=== PATIENT | male | born 2000 | race Hispanic/Latino ===

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

== ENCOUNTER 2018-01-04 22:11 | Emergency (ER) | payer OTHER ==
[~2018-01-04] VITALS: Ht 182.9 cm; Wt 68.0 kg
[~2018-01-04 22:11] MED LIST changes: +OLANZAPINE15 M1 PO
--- NOTE | 2018-01-04 23:21 | ED PSYCHIATRIC COMPLAINT ---
See Addendum History of Present Illness General Chief Complaint: Psychiatric Related Complaint Stated Complaint: ?MANIC EPISODE PER MOM Source: patient, family, old records Exam Limitations: no limitations Vital Signs & Intake/Output Vital Signs & Intake/Output Vital Signs Date Time Temp Pulse Resp B/P B/P Pulse O2 O2 Flow FiO2 Mean Ox Delivery Rate 01/05 1450 98.1 74 20 125/78 99 Room Air Room Air 01/05 1128 98.0 70 18 123/79 99 Room Air Room Air 01/05 0809 98.1 72 18 134/52 98 Room Air 01/05 0452 97.1 58 16 92/68 98 01/05 0118 98.8 97 20 128/68 99 01/04 2226 98.1 68 18 133/86 96 Room Air ED Intake and Output 01/05 0000 01/04 1200 Intake Total Output Total Balance Patient 150 lb Weight Weight Reported by Patient Measurement Method Allergies Coded Allergies: cashew nut (Severe, THROAT CLOSURE 01/05/17) Reconcile Medications Divalproex Sodium 500 MG TABLET.DR 1 TAB PO BID BEHAVIOR (Reported) Gabapentin 300 MG CAPSULE 1 CAP PO TID BEHAVIOR (Reported) Olanzapine 15 MG TABLET 15 MG PO AT BEDTIME Schizoaffective Triage Note: PT TO ER WITH MOTHER C/C "MANIC EPISODE" X 2 DAYS. STATES HAS BEEN UNABLE TO SLEEP, C/O RACING THOUGHTS. PER MOTHER PATIENT WAS ADMITTED TO [facility] 2 WEEKS AGO, PLAN WAS TO F/U OUTPATIENT, HOWEVER, D/T INSURANCE ISSUES HAS BEEN UNABLE. DENIES SI/HI, DENIES ETOH/DRUG USE Triage Nurses Notes Reviewed? yes Onset: Several days Duration: day(s):, constant, continues in ED, getting worse Timing: recent history Severity: moderate, severe Associated Symptoms: anxiety, impaired concentration, insomnia HPI: Several days prior to admission mother reports patient has had increasing anxiety difficulty concentrating difficulty sleeping. He denies fever chills nausea vomiting diarrhea abdominal pain chest pain shortness breath headache dysuria rash bleeding suicidal ideation homicidal ideation. (Kp MCGEE,Brian) Past History Travel History Traveled to [place] past 21 day No Medical History Any Pertinent Medical History? see below for history Neurological: NONE, SKULL FRACTURE A BABY EENT: NONE Cardiovascular: NONE Respiratory: NONE Gastrointestinal: NONE Hepatic: NONE Renal: NONE Musculoskeletal: NONE Psychiatric: psychosis, schizo affective disorder, substance abuse (Cannabus Use Disorder), Attention-deficit/hyperac tivity disorder Endocrine: NONE Blood Disorders: NONE Cancer(s): NONE WINCH RUNNER/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: N/A History of MRSA: No History of VRE: No History of CDIFF: No Surgical History Surgical History: non-contributory Psychosocial History Who do you live with Mother What is your primary language Czech Tobacco Use: Never used Family History Hx Contributory? No (Brian Goodrich MD) Review of Systems Review of Systems Constitutional: Reports: no symptoms. EENTM: Reports: no symptoms. Respiratory: Reports: no symptoms. Cardiovascular: Reports: no symptoms. GI: Reports: no symptoms. Genitourinary: Reports: no symptoms. Musculoskeletal: Reports: no symptoms. Skin: Reports: no symptoms. Neurological/Psychological: Reports: see HPI, anxiety, confusion. Hematologic/Endocrine: Reports: no symptoms. Immunologic/Allergic: Reports: no symptoms. All Other Systems: Reviewed and Negative (Brian Goodrich MD) Physical Exam Physical Exam General Appearance: well developed/nourished, alert, awake, anxious, moderate distress, thin Head: atraumatic, normal appearance Eyes: Bilateral: normal appearance, PERRL, EOMI. Ears, Nose, Throat: normal pharynx, normal ENT inspection, hearing grossly normal, moist mucus membranes Neck: normal inspection, supple, full range of motion, no midline tenderness Respiratory: normal breath sounds, chest non-tender, no respiratory distress, quiet respiration, lungs clear Cardiovascular: regular rate/rhythm, normal peripheral pulses, norml femoral pulses equa Gastrointestinal: normal bowel sounds, soft, non-tender, no organomegaly Extremities: normal range of motion, no ligament instability Neurological/Psychiatric: no motor/sensory deficits, awake, agitated, alert, anxious, 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 patient not suicidal (Brian Goodrich MD) Progress Differential Diagnosis: drug intoxication, drug overdose, drug withdrawal, electrolyte abnormality, hypoglycemia Plan of Care: Orders Procedure Date/time Status Regular Diet 01/05 B Active URINE DRUG SCREEN FOR ER ONLY 01/05 0945 Complete Patient Safety Monitor 01/05 0310 Active Patient Safety Monitor 01/04 2313 Active ED CRISIS PSYCH CONSULT 01/05 2312 Active ETHANOL 01/05 2240 Complete COMPREHENSIVE METABOLIC PANEL 01/05 2240 Complete CBC WITHOUT DIFFERENTIAL 01/05 2240 Complete Current Medications Sig/Federico Start time Last Medication Dose Stop Time Status Admin Olanzapine 15 MG AT BEDTIME 01/05 2100 AC (Zyprexa) Laboratory Tests 01/05/18 0946: Urine Opiates Screen < 100, Methadone Screen < 40, Barbiturate Screen < 60, Ur Phencyclidine Scrn < 6.00, Amphetamines Screen < 100, U Benzodiazepines Scrn < 85, Urine Cocaine Screen < 50, Urine Cannabis Screen 78.30 H 01/04/182315: Anion Gap 14, Estimated GFR > 60, BUN/Creatinine Ratio 13.3, Glucose 100 H, Calcium 9.7, Total Bilirubin 0.5, AST 22, ALT 27, Alkaline Phosphatase 51, Total Protein 7.8, Albumin 4.4, Globulin 3.4, Albumin/Globulin Ratio 1.3, CBC w Diff NO MAN DIFF REQ, RBC 5.09, MCV 87.8, MCH 29.8, MCHC 33.9, RDW 13.3, MPV 8.5, Gran % 71.9, Lymphocytes % 20.2 L, Monocytes % 6.3, Eosinophils % 1.3, Basophils % 0.3, Absolute Granulocytes 7.1 H, Absolute Lymphocytes 2.0, Absolute Monocytes 0.6, Absolute Eosinophils 0.1, Absolute Basophils 0, Serum Alcohol < 10.0 01/04/182239: Methadone Screen Cancelled, Barbiturate Screen Cancelled, Ur Phencyclidine Scrn Cancelled, Amphetamines Screen Cancelled, U Benzodiazepines Scrn Cancelled, Urine Cocaine Screen Cancelled, Urine Cannabis Screen Cancelled Hand-Off Endorsed To: Nigel Sosa MD Endorsed Time: 0700 Pending: consult, labs (utox) (Brian Goodrich MD) Comments: Patient has been seen and evaluated by group contract analyst. Patient has IOP appointment Tuesday at 2 PM. Patient is stable for discharge at this time. (Nigel Sosa MD) Departure Departure Condition: Stable Clinical Impression Primary Impression: Schizoaffective disorder, bipolar type Departure Forms: Customer Survey General Discharge Information (Brian Goodrich MD) Departure Disposition: HOME OR SELF CARE Referrals: Patient Has No Primary Care Dr (PCP/Family) Additional Instructions: Please follow up as per recommendations of the group contract analyst. Call 211 or return immediately to the emergency department for any concerns of harming yourself, anyone else or for any other concerns. Follow-up with the IOP appointment on Tuesday at 2 PM. (Sheila MCGEE,Nigel Santiago)
[2018-01-04 23:23] LABS: ABSOLUTE BASOPHIL COUNT 0 /CUMM (0.0-0.2); ABSOLUTE EOSINOPHIL COUNT 0.1 /CUMM (0.0-0.7); ABSOLUTE GRANULOCYTE CT 7.1 /CUMM (1.4-6.5); ABSOLUTE MONOCYTE COUNT 0.6 /CUMM (0.10-0.60); BASOPHIL % 0.3 % (0.0-2.0); EOSINOPHIL % 1.3 % (0-5); GRANULOCYTE % 71.9 % (42.2-75.2); HEMATOCRIT 44.7 % (42-52); MEAN CORPUSCULAR HGB 29.8 PG (27.0-31.0); MEAN CORPUSCULAR HGB CONC 33.9 G/DL (33.0-37.0); MEAN CORPUSCULAR VOLUME 87.8 FL (80.0-94.0); MEAN PLATELET VOLUME 8.5 FL (7.4-10.4); PLATELET COUNT 204 /CUMM (130-400); RBC DISTRIBUTION WIDTH 13.3 % (11.5-14.5); RED BLOOD CELL CT 5.09 /CUMM (4.70-6.10); WHITE BLOOD CELL COUNT 9.9 /CUMM (4.8-10.8)
[2018-01-04] MEDS ORDERED: GABAPENTIN300 M2 PO (23:43)
[2018-01-04] MEDS ORDERED: DIVALPROEX SOD500 M2 PO (23:43)
--- NOTE | 2018-01-05 16:23 | ED PSYCH CRISIS CONSULTATION ---
Crisis Consult Basic Assessment Date of Consult: 01/05/18 Responsible Person/Accompanied By: self Insurance Authorization: Insurance #1: Insurance name: [employer] Phone number: Policy number: [id number] Group number: Authorization number: ED Provider: Patient's ED Provider: Brian Goodrich MD Primary Care Physician: Patient's PCP: Patient Has No Primary Care Dr PCP's Phone Number: Current Psychiatrist: [facility] Chief Complaint: Psychiatric Related Complaint Patient's Quote: "couldn't sleep" Present Illness: Pt is a 17 year old male arriving to ER due to "can't sleep, I keep having too many thoughts". Pt denies si/hi/ah/vh. He begins to bring up a past situation/ delusion about possibly getting an ex girlfriend , and whether or not he has a child. Mom states this is not true, but pt does think about this often. Pt states he is still working at [employer] and has a girlfriend, he isn't taking his medications as prescribed, "I don't like Zyprexa or Gabapentin, I just like marijuana". Pt states "I just want to go home smoke a blunt and play my xbox". We explored mental health and how racing thoughts and not sleeping can impact functioning. I encouraged him to attend [facility], to continue to manage manic, psychotic symtpoms. Pt does not want to come in to the hospital, he states I just need to sleep, and lsiten to music. Pt had ear plugs in, and was lying quietly in bed, although denied hearing voices. I spoke with his Mom, who confirmed he did not Father a child, but she did report he has not slept, she can't confirm if he has taken his medications 'I work 2 jobs, I tell him to take them, I can't be sure what he does". I expressed how a visiting nurse could be very helpful, I encouraged her to continue to think about it. Patient's Address: [address] [place] [address] Other Phone Number: Who Do You Live With? Mother Family/Informants Interviewed: Spoke to Mom, enouraged her to rethink the visting nurse, and she is anxious because she doesnt always know what he doing during the day, and he hasn't slept. Allergies - Coded Allergies: cashew nut (Severe, THROAT CLOSURE 01/05/17) Current Medications - Scheduled Medications Divalproex Sodium 500 MG TABLET.DR 1 TAB PO BID BEHAVIOR #60 (Reported) Entered as Reported by Keya Moffett on 01/04/18 2343 Gabapentin 300 MG CAPSULE 1 CAP PO TID BEHAVIOR #180 (Reported) Entered as Reported by Keya Moffett on 01/04/18 2343 Olanzapine 15 MG TABLET 15 MG PO AT BEDTIME Schizoaffective #30 TAB Prescribed by Antwan Aleman MD on 12/15/17 Last Taken: At an unknown date and time Laboratory Results: Laboratory Tests 01/05/18 0946: Urine Opiates Screen < 100, Methadone Screen < 40, Barbiturate Screen < 60, Ur Phencyclidine Scrn < 6.00, Amphetamines Screen < 100, U Benzodiazepines Scrn < 85, Urine Cocaine Screen < 50, Urine Cannabis Screen 78.30 H 01/04/18 2316: Anion Gap 14, Estimated GFR > 60, BUN/Creatinine Ratio 13.3, Glucose 100 H, Calcium 9.7, Total Bilirubin 0.5, AST 22, ALT 27, Alkaline Phosphatase 51, Total Protein 7.8, Albumin 4.4, Globulin 3.4, Albumin/Globulin Ratio 1.3, CBC w Diff NO MAN DIFF REQ, RBC 5.09, MCV 87.8, MCH 29.8, MCHC 33.9, RDW 13.3, MPV 8.5, Gran % 71.9, Lymphocytes % 20.2 L, Monocytes % 6.3, Eosinophils % 1.3, Basophils % 0.3, Absolute Granulocytes 7.1 H, Absolute Lymphocytes 2.0, Absolute Monocytes 0.6, Absolute Eosinophils 0.1, Absolute Basophils 0, Serum Alcohol < 10.0 01/04/18 2240: Methadone Screen Cancelled, Barbiturate Screen Cancelled, Ur Phencyclidine Scrn Cancelled, Amphetamines Screen Cancelled, U Benzodiazepines Scrn Cancelled, Urine Cocaine Screen Cancelled, Urine Cannabis Screen Cancelled Past History Past Medical History Neurological: NONE, SKULL FRACTURE A BABY EENT: NONE Cardiovascular: NONE Respiratory: NONE Gastrointestinal: NONE Hepatic: NONE Renal: NONE Musculoskeletal: NONE Psychiatric: psychosis, schizo affective disorder, substance abuse (Cannabus Use Disorder), Attention-deficit/hyperac tivity disorder Endocrine: NONE Blood Disorders: NONE Cancer(s): NONE 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 Past Surgical History Surgical History: non-contributory Psychosocial History Strengths/Capabilities: Supportive family, reaches out for help Physical Limitations (Interventions): None reported Psychiatric Treatment History Psych Treatment Psychiatric Treatment Yes Inpatient Treatment Yes Outpatient Treatment Yes Location of Treatment [facility]/ IOP Reason for Treatment psychosis Dates of Treatment 2 weeks ago/ referral made Response to Treatment non compliant Diagnosis by History: Attention-deficit/hyperactivity disorder Depression Psychosis Cannabis use Substance Use/Abuse History Drug Use/Abuse Substances Used/Abused Yes Substance Used/Abused Marijuana First Use teenager Last Used yesterday How much used/taken varies How often varies For how long regularly Route of use smokes Substance Abuse Treatment Substance Abuse Treatment Past Substance Abuse [place] No Current Mental Status Mental Status Orientation: Person, Place, Situation Affect: Anxious, Manic, Sad Speech: WNL Neuro-vegetative: Concentration Poor, Hyperactivity, Sleep Disturbance Appearance Appearance- Dress/Hygiene: WNL Behaviors Thought Process: Flight of Ideas Thought Content: Delusions, Grandiose Memory: WNL Insight: Fair SI/HI Risk Assessment Past Suicidal Ideation/Attempts Yes Current Suicidal Ideation/Att No Past Homicidal Ideation/Att: No Current Homicidal Ideation/Attempts No Degree of Intent: None Gravely Disabled: Poor Impulse Control, Poor Judgment Risk Factors: age (under 24/over 65), substance abuse, poor impulse control, male, limited support Lethality Ratin (mild) PTSD Checklist PTSD Done? patient declined ED Management Sitter: Yes Restraints: No DSM5/PS Stressors/Medical Prob Diagnosis' (DSM 5, Stressors, Medical): Bi-polar with psychotic features F31.2 interpersonal Current GAF: 32 Departure Disposition Psych Medical Clearance Date: 01/05/18 Medically Cleared at: 1630 Time Started: 1630 Time Ended: 1730 Psychiatrist Consulted: Bhaskar Rodríguez MD Date Disposition Established: 01/05/18 Time Disposition Established: 1629 Plan for Disposition - Modality: IOP Facility: [facility] Follow-up Appt Date: 01/09/18 Follow-Up Appt Time: 1400 Contact: [facility] Rationale for Disposition: Consulted with Dr. Rodríguez, pt denies si/hi/ah/vh, he expressed racing thoughts and some delusions about the past. Current cannabis use, he will attend IOP, and revisit plan to have a visiting nurse. Informed Mom of plan and of his appointment. Referrals Patient Has No Primary Care Dr (PCP/Family)
[2018-01-05 19:47] VITALS: BP 124/72
[2018-01-09] MEDS ORDERED: ADDERALL 20 MG20 MG PO (10:31)
== END 2018-01-05 20:48 ==
LOC: ERH 22:11
PROVIDERS: Emergency Medicine
DX: F25.9 Schizoaffective disorder, unspecified (principal); F31.9 Bipolar disorder, unspecified
CPT/HCPCS: 80307; G0463; G0480

== ENCOUNTER 2018-01-28 02:52 | Emergency (ER) | payer OTHER ==
[~2018-01-28] VITALS: Ht 182.9 cm; Wt 68.0 kg
[~2018-01-28 02:52] MED LIST changes: +ADDERALL 20 MG20 MG PO; +DIVALPROEX SOD500 M2 PO
--- NOTE | 2018-01-28 03:26 | ED PSYCHIATRIC COMPLAINT ---
History of Present Illness General Chief Complaint: General Adult Stated Complaint: "HAVING A MANIC EPISODE" PER MOM Source: patient, family Exam Limitations: no limitations Vital Signs & Intake/Output Vital Signs & Intake/Output Vital Signs Date Time Temp Pulse Resp B/P B/P Pulse O2 O2 Flow FiO2 Mean Ox Delivery Rate 01/285 Room Air 01/28 2144 52 18 106/55 98 Room Air 01/28 1811 98.2 63 18 115/58 97 Room Air 01/28 1550 99 19 124/60 98 Room Air 01/28 1352 97 18 105/57 97 Room Air 01/28 1224 Room Air 01/28 1144 98.7 64 18 100/52 98 Room Air 01/28 1019 97.7 60 18 100/53 99 Room Air 01/28 0820 97.4 70 18 118/74 98 Room Air 01/28 0306 96.8 62 20 124/66 98 Room Air ED Intake and Output 01/29 0000 01/28 1200 Intake Total Output Total Balance Patient 150 lb Weight Weight Reported by Patient Measurement Method Reconcile Medications Dextroamphetamine/Amphetamine (Adderall 20 MG Tablet) 20 MG TABLET 1 TAB PO DAILY MENTAL HEALTH (Reported) Olanzapine 15 MG TABLET 15 MG PO AT BEDTIME Schizoaffective Triage Note: PT HERE FROM HOME WITH MOM. PER MO PT IS HAVING A MANIC EPISODE. MOM STATES PT HASNT TAKEN HIS MEDS IN 2 DAYS. PT DENIES SI/HI. REPORTS PAIN IN CHEST. Triage Nurses Notes Reviewed? yes HPI: 17 yo gentleman h/o bipolar disorder last flare approximately 1 year ago, with prior admission, presents with increasing energy and odd behavior. Per mom, "He just never sleeps and he sings in the middle of the night at 4am very loudly." Mom notes that sometimes he is very loud and aggressive at home. He has not taken his meds in several years. He smokes marijuana but denies other drug abuse or alcohol. He denies SI/HI/ hallucinations. (Milagros MCGEE,Bhaskar Napier) Allergies Coded Allergies: cashew nut (Severe, THROAT CLOSURE 01/05/17) Fish Containing Products (Intermediate, SWELLING 01/08/18) shellfish derived (THROAT CLOSES 01/28/18) (Kp MCGEE,Brian) Past History Travel History Traveled to [place] past 21 day No Medical History Any Pertinent Medical History? 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 No (Milagros MCGEE,Bhaskar Napier) Review of Systems Review of Systems Constitutional: Reports: no symptoms. EENTM: Reports: no symptoms. Respiratory: Reports: no symptoms. Cardiovascular: Reports: no symptoms. GI: Reports: no symptoms. Genitourinary: Reports: no symptoms. Musculoskeletal: Reports: no symptoms. Skin: Reports: no symptoms. Neurological/Psychological: Reports: no symptoms. Hematologic/Endocrine: Reports: no symptoms. Immunologic/Allergic: Reports: no symptoms. All Other Systems: Reviewed and Negative (Milagros MCGEE,Bhaskar Napier) Physical Exam Physical Exam General Appearance: well developed/nourished, mild distress Head: atraumatic Eyes: Bilateral: normal appearance. Ears, Nose, Throat: normal pharynx, normal ENT inspection Neck: normal inspection, supple, full range of motion Respiratory: normal breath sounds, chest non-tender, no respiratory distress, quiet respiration, lungs clear Cardiovascular: regular rate/rhythm Gastrointestinal: normal bowel sounds, soft, non-tender, no organomegaly Extremities: normal range of motion Neurological/Psychiatric: no motor/sensory deficits, awake, calm, flat, oriented x 3 Appearance/Memory/Insight: disheveled Behavoir/Eye Contact/Speech: cooperative Thoughts/Hallucinations: no apparent hallucination SAD PERSONS Done? patient not suicidal (Milagros MCGEE,Bhaskar Napier) Progress Differential Diagnosis: bipolar vs drug abuse vs other. Plan of Care: Orders Procedure Date/time Status Regular Diet 01/29 B Active Patient Safety Monitor 01/28 1900 Active Patient Safety Monitor 01/28 1500 Active Patient Safety Monitor 01/28 1100 Active Patient Safety Monitor 01/28 0700 Active DEPAKOTE LEVEL 07/07 0334 Complete Continuous Observation Monitor 01/28 257 Active URINE DRUG SCREEN FOR ER ONLY 01/28 257 Complete ETHANOL 01/28 257 Complete COMPREHENSIVE METABOLIC PANEL 01/28 257 Complete CBC WITHOUT DIFFERENTIAL 01/28 257 Complete ED CRISIS PSYCH CONSULT 01/28 257 Active Current Medications Sig/Federico Start time Last Medication Dose Stop Time Status Admin Gabapentin 300 MG Q8 01/28 06 UNVr 01/28 (Neurontin) 2206 Laboratory Tests 01/28/18333: Anion Gap 14, Estimated GFR > 60, BUN/Creatinine Ratio 12.5, Glucose 94, Calcium 10.8 H, Total Bilirubin 0.7, AST 24, ALT 37, Alkaline Phosphatase 45, Total Protein 8.7 H, Albumin 5.2 H, Globulin 3.5, Albumin/Globulin Ratio 1.5, CBC w Diff NO MAN DIFF REQ, RBC 5.25, MCV 88.6, MCH 29.4, MCHC 33.2, RDW 13.3, MPV 9.2 , Gran % 64.8, Lymphocytes % 25.6, Monocytes % 6.7, Eosinophils % 2.6, Basophils % 0.3, Absolute Granulocytes 5.2, Absolute Lymphocytes 2.1, Absolute Monocytes 0.5, Absolute Eosinophils 0.2, Absolute Basophils 0, Valproic Acid < 10.0 L, Serum Alcohol < 10.0 01/28/18329: Urine Opiates Screen < 100, Methadone Screen < 40, Barbiturate Screen < 60, Ur Phencyclidine Scrn < 6.00, Amphetamines Screen < 100, U Benzodiazepines Scrn < 85, Urine Cocaine Screen < 50, Urine Cannabis Screen 71.60 H 01/28/18 0326: Valproic Acid Cancelled Hand-Off Endorsed To: Brian Goodrich MD Endorsed Time: 699 Pending: consult, labs (Bhaskar Linares MD) Hand-Off Endorsed To: Nigel Sosa MD Endorsed Time: 1899 Pending: consult (Brian Goodrich MD) Hand-Off Endorsed To: Brian Goodrich MD Endorsed Time: 699 Pending: consult (Nigel Sosa MD) Departure Departure Condition: Stable Clinical Impression Primary Impression: Bipolar disorder Referrals: Patient Has No Primary Care Dr (PCP/Family) Departure Forms: Customer Survey General Discharge Information (Bhaskar Linares MD.) Departure Disposition: STILL A PATIENT (Sheila MCGEE,Nigel Santiago)
[2018-01-28 03:47] LABS: ABSOLUTE BASOPHIL COUNT 0 /CUMM (0.0-0.2); ABSOLUTE EOSINOPHIL COUNT 0.2 /CUMM (0.0-0.7); ABSOLUTE GRANULOCYTE CT 5.2 /CUMM (1.4-6.5); ABSOLUTE LYMPH COUNT 2.1 /CUMM (1.2-3.4); ABSOLUTE MONOCYTE COUNT 0.5 /CUMM (0.10-0.60); BASOPHIL % 0.3 % (0.0-2.0); EOSINOPHIL % 2.6 % (0-5); GRANULOCYTE % 64.8 % (42.2-75.2); HEMATOCRIT 46.5 % (42-52); MEAN CORPUSCULAR HGB 29.4 PG (27.0-31.0); MEAN CORPUSCULAR HGB CONC 33.2 G/DL (33.0-37.0); MEAN CORPUSCULAR VOLUME 88.6 FL (80.0-94.0); MEAN PLATELET VOLUME 9.2 FL (7.4-10.4); PLATELET COUNT 193 /CUMM (130-400); RBC DISTRIBUTION WIDTH 13.3 % (11.5-14.5); RED BLOOD CELL CT 5.25 /CUMM (4.70-6.10); WHITE BLOOD CELL COUNT 8.1 /CUMM (4.8-10.8)
--- NOTE | 2018-01-28 16:29 | ED PSYCH CRISIS CONSULTATION ---
See Addendum Crisis Consult Basic Assessment Date of Consult: 01/28/18 Responsible Person/Accompanied By: Self Insurance Authorization: Insurance #1: Insurance name: [employer] Phone number: Policy number: [id number] Group number: [id number] Authorization number: ED Provider: Patient's ED Provider: Bhaskar Linares MD Primary Care Physician: Patient's PCP: Patient Has No Primary Care Dr PCP's Phone Number: Current Psychiatrist: None Chief Complaint: Psychiatric Related Complaint Patient's Quote: "I need to get better to my girlfriend." Present Illness: The patient is a 17 year old single male presenting to the ED with a complaint of having a manic episode, delusional thought process, anxiety, depression and not sleeping for days per his mother, Cassandra Livingston . The patient presented as alert, anxious, orientated x3 with delusional thought process. The patient reports interrupted sleep, regular appetite, decreased energy and motivation. The patient reports depression of 7 and anxiety of 6 on a scale of 0 to 10, 10 being most severe. The patient denies SI, HI, auditory and visual hallucinations. The patient was fixated on marrying his girlfriend stating "The only thing that will make me happy is getting and settling down with my girlfriend. I need to get better and settle down. I am ashamed of it." The patient states that he was brought to the ED last night because "I was thinking too much. Listening to music changes my mood." The patient states he stopped attending [facility], because he overslept. The patient then returned the conversation to speaking of needing to get better to his girlfriend. The patient is exhibiting delusional and obsessive thought process as pertains to his perceived relationship with his girlfriend. Completed C-SSRS: Patient identified the following risk factors: Actual suicide attempt, previous psychiatric diagnoses and treatments, noncompliant with treatment, hopelessness, helplessness, substance abuse, agitation/anxiety. Patient identified the following protective factors: Identifies reason for living and supportive mother. Spoke to patient's mother, Cassandra Livingston. Cassandra states the patient has not been sleeping for days and exhibiting bizarre behavior. Cassandra states the patient's father found the patient slamming things upstairs yesterday. Cassandra states the patient has not been sleeping and singing at the top of his lungs in the middle of the night. Cassandra states the patient has not been taking his medications and believes he has been using cannabis. Cassandra states the patient has a lot of anxiety and depression. Cassandra states the patient has delusional thinking of believing he had a child with a girl two years ago and has been texting his friends about the child. Cassandra notes this is a common theme of the patient's delusional thought process in the past. Cassandra states that the patient does have a girlfriend, but states he is not allowed over her house because of acting in a bizarre manner there. Cassandra states the patient stopped attending IOP and did not complete the required number of sessions to receive a doctor's note to return to work. She states the patient told her he does not feel comfortable talking in group and was done with IOP when he did not successfully complete. Cassandra is concerned with the patient's psychotic behavior and acknowledges that the patient needs to be compliant with his medication to be stable. Patient's Address: [address] [place] [address] Other Phone Number: Who Do You Live With? Mother Family/Informants Interviewed: MotherCassandra Allergies - Coded Allergies: cashew nut (Severe, THROAT CLOSURE 01/05/17) Fish Containing Products (Intermediate, SWELLING 01/08/18) shellfish derived (THROAT CLOSES 01/28/18) Current Medications - Scheduled Medications Dextroamphetamine/Amphetamine (Adderall 20 MG Tablet) 20 MG TABLET 1 TAB PO DAILY MENTAL HEALTH (Reported) Entered as Reported by Behzad Montes on 01/09/18 1031 Olanzapine 15 MG TABLET 15 MG PO AT BEDTIME Schizoaffective #30 TAB Prescribed by Ash MCGEE,Antwan on 12/15/17 Laboratory Results: Laboratory Tests 01/28/18 0334: Anion Gap 14, Estimated GFR > 60, BUN/Creatinine Ratio 12.5, Glucose 94, Calcium 10.8 H, Total Bilirubin 0.7, AST 24, ALT 37, Alkaline Phosphatase 45, Total Protein 8.7 H, Albumin 5.2 H, Globulin 3.5, Albumin/Globulin Ratio 1.5, CBC w Diff NO MAN DIFF REQ, RBC 5.25, MCV 88.6, MCH 29.4, MCHC 33.2, RDW 13.3, MPV 9.2 , Gran % 64.8, Lymphocytes % 25.6, Monocytes % 6.7, Eosinophils % 2.6, Basophils % 0.3, Absolute Granulocytes 5.2, Absolute Lymphocytes 2.1, Absolute Monocytes 0.5, Absolute Eosinophils 0.2, Absolute Basophils 0, Valproic Acid < 10.0 L, Serum Alcohol < 10.0 01/28/18 0330: Urine Opiates Screen < 100, Methadone Screen < 40, Barbiturate Screen < 60, Ur Phencyclidine Scrn < 6.00, Amphetamines Screen < 100, U Benzodiazepines Scrn < 85, Urine Cocaine Screen < 50, Urine Cannabis Screen 71.60 H 01/28/18 0326: Valproic Acid Cancelled Past History Past Medical History Neurological: NONE, SKULL FRACTURE A BABY EENT: NONE Cardiovascular: NONE Respiratory: NONE Gastrointestinal: NONE Hepatic: NONE Renal: NONE Musculoskeletal: NONE Psychiatric: psychosis, schizo affective disorder, substance abuse (Cannabus Use Disorder), Attention-deficit/hyperac tivity disorder Endocrine: NONE Blood Disorders: NONE Cancer(s): NONE 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 12/15/17 & [facility] Last attended 01/13 Response to Treatment Patient has stopped attending [facility] and has decompensated. Diagnosis by History: Attention-deficit/hyperactivity disorder Depression Psychosis Cannabis use Substance Use/Abuse History Drug Use/Abuse Substances Used/Abused Yes Substance Used/Abused Marijuana First Use Teenager Last Used "Couple of days ago" How much used/taken Varies How often Regularly For how long On and off since teenager Route of use Smokes Substance Abuse Treatment Substance Abuse Treatment Past Substance Abuse [place] Yes Inpatient Treatment Yes Outpatient Treatment Yes Location of Treatment [facility] Reason for Treatment Dual diagnosis program Dates of Treatment Last attended [facility] on 01/13/18 Response to Treatment Patient stopped attending IOP and has decompensated Comments: None Current Mental Status Mental Status Orientation: Person, Place, Situation Affect: Anxious, Hopeless, Manic Speech: WNL Neuro-vegetative: Energy Decreased, Helpless, Hyperactivity, Loss of Interest, Sleep Disturbance Appearance Appearance- Dress/Hygiene: Khadijah was dressed in hospital scrubs, unshaven and disheveled. Behaviors Thought Process: Flight of Ideas Thought Content: Delusions, Obsessions Memory: WNL Insight: Poor SI/HI Risk Assessment Past Suicidal Ideation/Attempts Yes Current Suicidal Ideation/Att No Past Homicidal Ideation/Att: No Current Homicidal Ideation/Attempts No Degree of Intent: None Danger To: Self Gravely Disabled: Inability, Lack of Insight Risk Factors: age (under 24/over 65), chronic/serious med cond., high anxiety/ distress, history of suicide atmpts, SA/MH hospitalized, substance abuse, male Lethality Ratin PTSD Checklist PTSD Done? patient declined ED Management Sitter: Yes Restraints: No DSM5/PS Stressors/Medical Prob Diagnosis' (DSM 5, Stressors, Medical): F31.9 Bipolar Disorder With Psychotic Features F12.20 Cannabis Use Disorder, Severe Medical: Pt denies Stressors: primary relationships Current GAF: 25 Comments: None Departure Disposition Psych Medical Clearance Date: 01/28/18 Medically Cleared at: 0259 Date Disposition Established: 01/28/18 Time Disposition Established: 1729 Plan for Disposition - Modality: Bed Search Rationale for Disposition: Patient presents with delusional thought process and fixated on relationship with girlfriend. Patient has nit been compliant with medication and has relapsed with cannabis use. Dr. Aleman agrees the patient is gravely disabled and in need of inpatient treatment to stabilze psychotic symptoms. A bed search will be conducted. Type of IP Admission: Voluntary Additional Instructions: None Referrals Patient Has No Primary Care Dr (PCP/Family)
[2018-01-29] MEDS ORDERED: GABAPENTIN300 M2 PO (12:00)
[2018-01-29] MEDS ORDERED: DIVALPROEX SOD500 M2 PO (12:02)
[2018-01-29] MEDS ORDERED: QUETIAPINE FUM100 M1 PO (12:02)
[2018-01-29 15:23] VITALS: BP 122/58
== END 2018-01-29 15:45 | disposition other institution (70) ==
LOC: ERH 02:52
PROVIDERS: Pediatrics
DX: F31.9 Bipolar disorder, unspecified (principal); F12.10 Cannabis abuse, uncomplicated
CPT/HCPCS: 80307; G0463; G0480

== ENCOUNTER 2018-02-22 07:34 | Inpatient (IN) | payer OTHER ==
[~2018-02-22] VITALS: Ht 182.9 cm; Wt 68.2 kg
[~2018-02-22 07:34] MED LIST changes: +QUETIAPINE FUM100 M1 PO
[2018-02-22 08:13] LABS: ABSOLUTE BASOPHIL COUNT 0 /CUMM (0.0-0.2); ABSOLUTE EOSINOPHIL COUNT 0.2 /CUMM (0.0-0.7); ABSOLUTE GRANULOCYTE CT 3.5 /CUMM (1.4-6.5); ABSOLUTE LYMPH COUNT 1.8 /CUMM (1.2-3.4); ABSOLUTE MONOCYTE COUNT 0.5 /CUMM (0.10-0.60); BASOPHIL % 0.2 % (0.0-2.0); EOSINOPHIL % 3.1 % (0-5); GRANULOCYTE % 57.8 % (42.2-75.2); HEMATOCRIT 38.7 % (42-52); MEAN CORPUSCULAR HGB CONC 34.1 G/DL (33.0-37.0); MEAN PLATELET VOLUME 8.9 FL (7.4-10.4); PLATELET COUNT 153 /CUMM (130-400); RBC DISTRIBUTION WIDTH 12.9 % (11.5-14.5); RED BLOOD CELL CT 4.39 /CUMM (4.70-6.10)
--- NOTE | 2018-02-22 08:58 | ED PSYCHIATRIC COMPLAINT ---
History of Present Illness General Chief Complaint: Psychiatric Related Complaint Stated Complaint: PER MOTHER PSYCHOTIC EPISODE, +SI Source: patient Exam Limitations: PSYCHIATRIC DISORDER Vital Signs & Intake/Output Vital Signs & Intake/Output Vital Signs Date Time Temp Pulse Resp B/P B/P Pulse O2 O2 Flow FiO2 Mean Ox Delivery Rate 02/23 1939 98.2 88 133/64 02/23 1606 97.2 75 130/71 08/ 1549 97.6 75 20 112/71 97 Room Air 02/23 1359 98.1 64 20 18/53 100 Room Air 02/23 1201 98.0 58 20 131/63 98 Room Air / 0956 98.0 56 20 126/58 99 Room Air / 0825 98.1 51 20 110/62 99 Room Air / 0638 98.0 64 18 112/68 98 Room Air 02/22 2135 98.1 49 18 108/70 100 Room Air ED Intake and Output 02/23 0000 02/22 1200 Intake Total Output Total Balance Patient 170 lb Weight Allergies Coded Allergies: cashew nut (Severe, THROAT CLOSURE 01/05/17) Fish Containing Products (Intermediate, SWELLING 01/08/18) shellfish derived (THROAT CLOSES 01/28/18) Reconcile Medications Dextroamphetamine/Amphetamine (Adderall 20 MG Tablet) 20 MG TABLET 1 TAB PO DAILY MENTAL HEALTH (Reported) Divalproex Sodium 500 MG TABLET.DR 1 TAB PO BID UNKNOWN (Reported) Gabapentin 300 MG CAPSULE 2 CAP PO TID UNKNOWN (Reported) Olanzapine 15 MG TABLET 15 MG PO AT BEDTIME Schizoaffective Quetiapine Fumarate 100 MG TABLET 1 TAB PO TID MENTAL HEALTH (Reported) Triage Note: 18M TO ED FOR ?PSYCHOTIC EPISODE. RESPONSES ARE NOT ORGANIZED OR CONGRUENT WITH CONVERSATION. PT HAS BEEN IN AND OUT OF ED MULTIPLE TIMES PER MOM AND HE JUST KEEPS DECOMPENSATING. WHEN ASKED IF HE IS SUICIDAL HE REPLIES "YES" AND WHEN ASKED TO EXPLAIN FURTHER HE REPLIES "BUZZ LIGHTYEAR" AND "MARIJUANA". DENIES ETOH +MJ. PREOCCUPIED ON HIS PHONE DURING TRIAGE EVALUATION Triage Nurses Notes Reviewed? yes HPI: Patient presents for evaluation of depression. History is extremely limited as the patient has a somewhat distant affect and will answer questions inconsistently. It is unclear if the patient is currently being treated for his depression. He does deny suicidal ideation currently at least. He admits to marijuana use but otherwise denies drug or alcohol use. (Clary MCGEE,Rudy Vela) Past History Travel History Traveled to [place] past 21 day No Medical History Any Pertinent Medical History? see below for history Neurological: NONE, SKULL FRACTURE A BABY EENT: NONE Cardiovascular: NONE Respiratory: NONE Gastrointestinal: NONE Hepatic: NONE Renal: NONE Musculoskeletal: NONE Psychiatric: psychosis, schizo affective disorder, substance abuse (Cannabus Use Disorder), Attention-deficit/hyperac tivity disorder Endocrine: NONE Blood Disorders: NONE Cancer(s): NONE RESIDENT CARE SPEC/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: N/A History of MRSA: No History of VRE: No History of CDIFF: No Surgical History Surgical History: non-contributory Psychosocial History Who do you live with Mother What is your primary language Welsh Tobacco Use: Never used ETOH Use: denies use Illicit Drug Use: marijuana Family History Hx Contributory? No (Clary MCGEE,Rudy Vela) Review of Systems Review of Systems Constitutional: Reports: no symptoms. EENTM: Reports: no symptoms. Respiratory: Reports: no symptoms. Cardiovascular: Reports: no symptoms. GI: Reports: no symptoms. Genitourinary: Reports: no symptoms. Musculoskeletal: Reports: no symptoms. Skin: Reports: no symptoms. Neurological/Psychological: Reports: depressed. Hematologic/Endocrine: Reports: no symptoms. Immunologic/Allergic: Reports: no symptoms. All Other Systems: Reviewed and Negative (Clary MCGEE,Rudy Vela) Physical Exam Physical Exam General Appearance: see below Neurological/Psychiatric: see below Comments: General: Alert, calm, cooperative Head: Normocephalic, atraumatic Eyes: Normal inspection, no nystagmus, EOMI Ears: Normal inspection Nose: Normal inspection Throat: Moist mucosa Neck: Supple, no goiter Heart: Regular rate and rhythm, no murmurs rubs or gallops Lungs: Clear to auscultation bilaterally with good air entry Abdomen: Soft nontender nondistended, normal bowel sounds Chest: Nontender Extremities: Normal range of motion grossly, no tremors present, no cyanosis clubbing or edema of the upper extremities Neurologic: cranial nerves II through XII grossly intact, speech often mumbled and of low volume, gait normal Psychiatric: No apparent delusions or hallucinations, no pressured speech or thought blocking, depressed affect SAD PERSONS Done? patient not suicidal (currently), deferred to crisis (Rudy Means MD) Progress Differential Diagnosis: psychosis, schizoaffective disorder, personality disorder, drug intoxication Plan of Care: Orders Procedure Date/time Status Regular Diet 02/23 D Active Vital Signs 02/23 1604 Active Inpt Psych Teach/Educate 02/23 1604 Active Nutritional Intake, Monitor 02/23 1604 Active Inpt Psych Auricular Acupunctu 02/23 1604 Active Patient Data - inpatient psych 02/23 1446 Active Admit to inpatient psych 02/23 1446 Active Admit to inpatient psych 02/23 1437 Active Vital Signs 02/23 UNK Complete Nursing Misc 02/23 UNK Active Alternative Nursing Therapy 02/23 UNK Complete Activity/Ambulation 02/23 UNK Complete Intake & Output 02/22 0745 Complete Current Medications Sig/Federico Start time Last Medication Dose Stop Time Status Admin Olanzapine 15 MG 2100 02/23 2100 AC (Zyprexa) Al Hydroxide/Mg 30 ML Q4-6 PRN PRN 02/23 1445 AC Hydroxide (Maalox Plus) Ibuprofen 400 MG Q6-PRN PRN 02/23 1445 AC (Motrin) Magnesium Hydroxide 30 ML AT BEDTIME PRN 02/23 1445 AC (Milk Of Magnesia) Lorazepam 1 MG Q4 HRS NEEDED PRN 02/22 1545 AC (Ativan) Lorazepam 2 MG AT BEDTIME NEED.. 02/22 1545 AC (Ativan) Comments: 02/22/2018 3:47:16 PM per disaster recovery specialist, patient will be treated and reevaluated in the morning. 02/22/2018 7:07:38 PM patient signed out to Dr. Goodrich at shift exchange administrator. (Clary MCGEE,Rudy Vela) Hand-Off Endorsed To: Nigel Sosa MD Endorsed Time: 0700 Pending: consult (re-eval) (Brian Goodrich MD) Departure Departure Condition: Stable Clinical Impression Primary Impression: Psychosis Secondary Impressions: Marijuana use Referrals: Patient Has No Primary Care Dr (PCP/Family) Departure Forms: Customer Survey General Discharge Information (Clary MCGEE,Rudy Vela) Departure Disposition: STILL A PATIENT Psych Admission Note Psychiatric Admission: I have seen and evaluated MARIA A NIX. I have also reviewed all the pertinent lab results and diagnostic results. MARIA A NIX will be admitted to our inpatient Psychiatric unit for treatment and care. (Sheila MCGEE,Nigel Santiago)
--- NOTE | 2018-02-22 16:00 | ED PSYCH CRISIS CONSULTATION ---
See Addendum Crisis Consult Basic Assessment Date of Consult: 02/22/18 Responsible Person/Accompanied By: provided brought pt, did not stay all day Insurance Authorization: Insurance #1: Insurance name: [facility] Phone number: Policy number: [id number] Group number: [id number] Authorization number: ED Provider: Patient's ED Provider: Clary MCGEE,Rudy Vela Primary Care Physician: Patient's PCP: Patient Has No Primary Care Dr PCP's Phone Number: Current Psychiatrist: no current prescriber Chief Complaint: Psychiatric Related Complaint Patient's Quote: "I hear echos of voices" "3-21 different voices" Present Illness: Patient is a 18 year old male brought into the ED by his mother earlier today. This is the patient's 4th presentation to the ED since his last discharge to [facility] in November 2017. Pt was referred to [facility] multiple times for intakes and he does not follow through. Pt's last IP hospitalization was at [facility] following ED visit on 01/28/18. Pt is on [facility]'s Community Care Team (CCT). Pt is diagnosed with Schizoaffective Disorder, Bipolar Type and Cannabis Use Disorder. Pt's utox is positive for Cannabis and he reports smoking 2-3 joints daily. When asked about other drugs he states he thinks he "boy puts giancarlo in the joints sometimes". Pt's BAL was zero and he reports doesn't like alcohol. Pt reports prior cocaine use, but stated last use was 6 years ago. It should be noted that patient presents with a variable affect, a happy mood, word salad, command auditory hallucination to hang himself and at times flight of ideas. He responded to questions asked in Vietnamese in English. At times, the answers to the questions asked were appropriate, other times they were not logical. For example, he states that he is not taking any medications because his he have insurance, which is accurate. He states he does live with his mother, which is also true. He stated his mom brought him to the ED today because he is a bad Liar. Then stated "666" and "God". Pt stated that he was sad because his fiance . When asked when she he stated, 2097. He also stated that at times he sees things like spiders and bugs and when he sees them he flips out. Then repeated "spiderman" quickly 3 times. He also reports he sees a clown but not all the time. Pt is in agreement to take medications to help get rid of the voices/echos and come back into the hospital. Crisis consulted with Dr. Hightower, psychiatrist television installer helper and who had the pt on his caseload when he was last in [facility]. Dr. Hightower ordered Ativan and Zyprexa. Patient's Address: [address] [place] [address] Other Phone Number: Who Do You Live With? Mother Family/Informants Interviewed: Spoke to mother, Cassandra Livingston ). Mom states pt is getting worse not better. She states pt has not been sleeping. He has been staying up all night. Mom reports she has been staying up with him. But last night she must have been so tired, she fell asleep. She states she woke up at 5 a.m. with a text that the pt sent at 1:30 a.m. saying he wanted to commit suicide. Mom was crying on the phone and on her way into work. Mom noted pt also shaved the dog recently- but did not hurt the dog. She states he is covered under her insurance- [facility]. Mom states she does not know what the discharge recommendatins after [facility] stay were because the pt doens't share that information with her because he states he's an adult and he doesn't have to. Allergies - Coded Allergies: cashew nut (Severe, THROAT CLOSURE 01/05/17) Fish Containing Products (Intermediate, SWELLING 01/08/18) shellfish derived (THROAT CLOSES 01/28/18) Current Medications - Scheduled Medications Dextroamphetamine/Amphetamine (Adderall 20 MG Tablet) 20 MG TABLET 1 TAB PO DAILY MENTAL HEALTH (Reported) Entered as Reported by Behzad Montes on 01/09/18 1031 Divalproex Sodium 500 MG TABLET. 1 TAB PO BID UNKNOWN #60 (Reported) Entered as Reported by January Cline on 01/29/18 1202 Gabapentin 300 MG CAPSULE 2 CAP PO TID UNKNOWN #180 (Reported) Entered as Reported by January Cline on 01/29/18 1200 Olanzapine 15 MG TABLET 15 MG PO AT BEDTIME Schizoaffective #30 TAB Prescribed by Antwan Aleman MD on 12/15/17 Quetiapine Fumarate 100 MG TABLET 1 TAB PO TID MENTAL HEALTH #90 (Reported) Entered as Reported by January Cline on 01/29/18 1202 Laboratory Results: Laboratory Tests 02/22/18 0809: Urine Opiates Screen < 100, Methadone Screen 42, Barbiturate Screen < 60, Ur Phencyclidine Scrn < 6.00, Amphetamines Screen < 100, U Benzodiazepines Scrn < 85, Urine Cocaine Screen < 50, Urine Cannabis Screen > 80.00 H 02/22/18 0806: Anion Gap 12, Estimated GFR > 60, BUN/Creatinine Ratio 12.2, Glucose 89, Calcium 9.1, Total Bilirubin 0.4, AST 18, ALT 25, Alkaline Phosphatase 44, Total Protein 7.0, Albumin 4.1, Globulin 2.9, Albumin/Globulin Ratio 1.4, CBC w Diff NO MAN DIFF REQ, RBC 4.39 L, MCV 88.0, MCH 30.0, MCHC 34.1, RDW 12.9, MPV 8.9, Gran % 57.8, Lymphocytes % 30.5, Monocytes % 8.4, Eosinophils % 3.1, Basophils % 0.2, Absolute Granulocytes 3.5, Absolute Lymphocytes 1.8, Absolute Monocytes 0.5, Absolute Eosinophils 0.2, Absolute Basophils 0, Serum Alcohol < 10.0 Past History Past Medical History Neurological: NONE, SKULL FRACTURE A BABY EENT: NONE Cardiovascular: NONE Respiratory: NONE Gastrointestinal: NONE Hepatic: NONE Renal: NONE Musculoskeletal: NONE Psychiatric: psychosis, schizo affective disorder, substance abuse (Cannabus Use Disorder), Attention-deficit/hyperac tivity disorder Endocrine: NONE Blood Disorders: NONE Cancer(s): NONE 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: N/A Past Surgical History Surgical History: non-contributory Psychosocial History Strengths/Capabilities: Mother brings him to the ED when she believes he needs help pt is likeable and cooperative Physical Limitations (Interventions): None reported Psychiatric Treatment History Psych Treatment Psychiatric Treatment Yes Inpatient Treatment Yes Outpatient Treatment Yes Location of Treatment [facility], [facility], [facility] Reason for Treatment +SI +command hallucinations non complaince w/ psychiatric medications leading to decline in functioning Dates of Treatment Last [facility] discharge 11/2017, [facility] IP- 01/2018 Response to Treatment pt reponds well to medications however when he is off his medications he rapidly declines Diagnosis by History: Attention-deficit/hyperactivity disorder Depression Psychosis Cannabis use Schizoaffetctive Disorder Substance Use/Abuse History Drug Use/Abuse Substances Used/Abused Yes Substance Used/Abused Marijuana Last Used 02/21/18 How much used/taken 2-3 joints How often daily For how long years Route of use inhale Substance Abuse Treatment Substance Abuse Treatment Past Substance Abuse [place] No Comments: It is unclear from past records if pt has ever engaged in substance abuse services. He has been referred to [facility] on numerous occassions. He has on occassion completed an intake but he does not engage. Pt is not appropriate for [facility]. Current Mental Status Mental Status Orientation: Confused Affect: Variable Speech: Mumbled, Word Salad Neuro-vegetative: Concentration Poor, Sleep Disturbance Appearance Appearance- Dress/Hygiene: Pt presents in hospital attire. He has unkempt hair that is in the Afro style. Behaviors Thought Process: Flight of Ideas Thought Content: Auditory Hallucinations, Visual Hallucinations Memory: Impaired Insight: Poor SI/HI Risk Assessment Past Suicidal Ideation/Attempts Yes Current Suicidal Ideation/Att Yes Past Homicidal Ideation/Att: Yes Current Homicidal Ideation/Attempts No Degree of Intent: Plan Danger To: Self Gravely Disabled: Inability Risk Factors: age (under 24/over 65), high anxiety/distress, SA/MH hospitalized, substance abuse, poor impulse control, male, limited support Lethality Ratin PTSD Checklist PTSD Done? pt unable to participate (due to psychosis) ED Management Sitter: Yes Restraints: No DSM5/PS Stressors/Medical Prob Diagnosis' (DSM 5, Stressors, Medical): F25.9 Schizoaffective Disorder, Bipolar Type F12.20 Cannabis Use Disorder, Severe Current GAF: 20 Departure Disposition Psych Medical Clearance Date: 02/22/18 Medically Cleared at: 1530 Time Started: 1530 Time Ended: 1600 Psychiatrist Consulted: Dr. Hightower Date Disposition Established: 02/22/18 Time Disposition Established: 1620 Plan for Disposition - Modality: Bed Search Rationale for Disposition: Pt has presented to the ED 4x since his discharge on [facility] in November 2017. Pt did not follow up with IOP as recommended. Pt is off his medications. Pt has command hallucinations telling him to hang himself. Pt is floridly psychotic. Pt requires acute inpatent psychiatric treatment. Referrals Patient Has No Primary Care Dr (PCP/Family)
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
[2018-02-23 16:06] VITALS: BP 130/71
--- NOTE | 2018-02-23 18:24 | History & Physical ---
General Information and HPI MD Statement: I have seen and personally examined MARIA A NIX and documented this H&P. The patient is a 18 year old M who presented with a patient stated chief complaint of "I hear a course of voices"]. Source of Information: patient, family, old records Exam Limitations: unable to give history History of Present Illness: 18-year-old male per mother patient is having a psychotic episode and suicidal ideations. Seems disorganized. He has had 4 emergency department visits since her last discharge December 09 from Inpatient Psychiatry. Patient has a diagnosis of schizoaffective disorder bipolar type and cannabis be use disorder. Is having auditory hallucinations. For all those reasons is admitted for evaluation Allergies/Medications Allergies: Coded Allergies: cashew nut (Severe, THROAT CLOSURE 01/05/17) Fish Containing Products (Intermediate, SWELLING 01/08/18) shellfish derived (THROAT CLOSES 01/28/18) Home Med list Dextroamphetamine/Amphetamine (Adderall 20 MG Tablet) 20 MG TABLET 1 TAB PO DAILY MENTAL HEALTH (Reported) Divalproex Sodium 500 MG TABLET.DR 1 TAB PO BID UNKNOWN (Reported) Gabapentin 300 MG CAPSULE 2 CAP PO TID UNKNOWN (Reported) Olanzapine 15 MG TABLET 15 MG PO AT BEDTIME Schizoaffective Quetiapine Fumarate 100 MG TABLET 1 TAB PO TID MENTAL HEALTH (Reported) Compliance With Home Meds: UNKNOWN Past History Travel History Traveled to [place] past 21 day No Medical History Neurological: NONE, SKULL FRACTURE A BABY EENT: NONE Cardiovascular: NONE Respiratory: NONE Gastrointestinal: NONE Hepatic: NONE Renal: NONE Musculoskeletal: NONE Psychiatric: psychosis, schizo affective disorder, substance abuse (Cannabus Use Disorder), Attention-deficit/hyperac tivity disorder Endocrine: NONE Blood Disorders: NONE Cancer(s): NONE 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 Exam & Diagnostic Data Last 24 Hrs of Vital Signs/I&O Vital Signs Date Time Temp Pulse Resp B/P B/P Pulse O2 O2 Flow FiO2 Mean Ox Delivery Rate 02/23 1606 97.2 75 130/71 08 1549 97.6 75 20 112/71 97 Room Air 02/23 1359 98.1 64 20 18/53 100 Room Air 02/23 1201 98.0 58 20 131/63 98 Room Air 02/23 0956 98.0 56 20 126/58 99 Room Air 02/23 0825 98.1 51 20 110/62 99 Room Air 02/23 0638 98.0 64 18 112/68 98 Room Air 02/22 2135 98.1 49 18 108/70 100 Room Air Physical Exam General Appearance Alert, Oriented X3, Cooperative, No Acute Distress Skin No Rashes HEENT PERRLA, EOMI, Mucous Membr. moist/pink Neck Supple, No JVD, No thryomegaly, +2 Carotid Pulse wo Bruit Lymphatic Axillary nl, Cervical nl Cardiovascular Regular Rate, No Murmurs Lungs Clear to Auscultation, Normal Air Movement Abdomen Soft, No Tenderness, No Hepatospenomegaly Neurological Exam Findings: Normal Gait, Normal Speech, Strength at 5/5 X4 Ext, Normal Tone, Sensation Intact, Cranial Nerves 3-12 NL, Reflexes 2+ Cranial Nerves II through XII: Intact Extremities No Cyanosis, No Edema, Normal Pulses, No Tenderness/Swelling Vascular Normal Pulses, Pulses Symmetrical Last 24 Hrs of Labs/Goldy: Laboratory Tests 02/22/18 0809: Urine Opiates Screen < 100, Methadone Screen 42, Barbiturate Screen < 60, Ur Phencyclidine Scrn < 6.00, Amphetamines Screen < 100, U Benzodiazepines Scrn < 85, Urine Cocaine Screen < 50, Urine Cannabis Screen > 80.00 H 02/22/18 0806: Anion Gap 12, Estimated GFR > 60, BUN/Creatinine Ratio 12.2, Glucose 89, Calcium 9.1, Total Bilirubin 0.4, AST 18, ALT 25, Alkaline Phosphatase 44, Total Protein 7.0, Albumin 4.1, Globulin 2.9, Albumin/Globulin Ratio 1.4, CBC w Diff NO MAN DIFF REQ, RBC 4.39 L, MCV 88.0, MCH 30.0, MCHC 34.1, RDW 12.9, MPV 8.9, Gran % 57.8, Lymphocytes % 30.5, Monocytes % 8.4, Eosinophils % 3.1, Basophils % 0.2, Absolute Granulocytes 3.5, Absolute Lymphocytes 1.8, Absolute Monocytes 0.5, Absolute Eosinophils 0.2, Absolute Basophils 0, Serum Alcohol < 10.0 Assessment/Plan As Ranked By This Provider Problem List: 1. Marijuana use 2. Depression 3. Schizoaffective disorder, bipolar type 4. Suicidal ideations Miscellaneous Miscellaneous Documentation Attending Case Discussed With: Sangita Linares MD Primary Care Physician: Patient Has No Primary Care Dr Patient sees these Specialists Psychiatry Level of Patient Care: [facility] Consults Needed: Consulting Specialty: Psychiatry Consulting Physician: Dr Linares Reason for Consult: SI, depression Attending MD Review Statement Attending Statement Attending MD Statement: examined this patient
[2018-02-23 19:39] VITALS: BP 133/64
--- NOTE | 2018-02-24 11:22 | SOCIAL WORKER SOCIAL HX PSYCH ---
Social History Basic Assessment Insurance Authorization: Insurance #1: Insurance name: [facility] Phone number: Policy number: [id number] Group number: [id number] Authorization number: Curr Source of Income/Entitlements: employment Primary Care Physician: Patient's PCP: Patient Has No Primary Care Dr PCP's Phone Number: Present Problem: The following was taken from the Crisis Plan note: Patient's Quote: "I hear echos of voices" "3-21 different voices" Present Illness: Patient is a 18 year old male brought into the ED by his mother earlier today. This is the patient's 4th presentation to the ED since his last discharge to [facility] in November 2017. Pt was referred to [facility] multiple times for intakes and he does not follow through. Pt's last IP hospitalization was at [facility] following ED visit on 01/28/18. Pt is on [facility]'s Community Care Team (CCT). Pt is diagnosed with Schizoaffective Disorder, Bipolar Type and Cannabis Use Disorder. Pt's utox is positive for Cannabis and he reports smoking 2-3 joints daily. When asked about other drugs he states he thinks he "boy puts giancarlo in the joints sometimes". Pt's BAL was zero and he reports doesn't like alcohol. Pt reports prior cocaine use, but stated last use was 6 years ago. It should be noted that patient presents with a variable affect, a happy mood, word salad, command auditory hallucination to hang himself and at times flight of ideas. He responded to questions asked in Moldovan in Moroccan. At times, the answers to the questions asked were appropriate, other times they were not logical. For example, he states that he is not taking any medications because his he have insurance, which is accurate. He states he does live with his mother, which is also true. He stated his mom brought him to the ED today because he is a bad Liar. Then stated "666" and "God". Pt stated that he was sad because his fiance . When asked when she he stated, 2097. He also stated that at times he sees things like spiders and bugs and when he sees them he flips out. Then repeated "spiderman" quickly 3 times. He also reports he sees a clown but not all the time. Pt is in agreement to take medications to help get rid of the voices/echos and come back into the hospital. Crisis consulted with Dr. Hightower, psychiatrist second rigger and who had the pt on his caseload when he was last in [facility]. Dr. Hightower ordered Ativan and Zyprexa Primary Language? Moldovan Language(s) Spoken At Home: Moldovan Living Situation Rents or Owns Home? owns Feel Safe Where You Are Living Yes Feel Safe in Relationships? No Allergies - Coded Allergies: cashew nut (Severe, THROAT CLOSURE 01/05/17) Fish Containing Products (Intermediate, SWELLING 01/08/18) shellfish derived (THROAT CLOSES 01/28/18) Current Medications - Scheduled Medications Dextroamphetamine/Amphetamine (Adderall 20 MG Tablet) 20 MG TABLET 1 TAB PO DAILY MENTAL HEALTH (Reported) Entered as Reported by Behzad Montes on 01/09/18 1031 Divalproex Sodium 500 MG TABLET.DR 1 TAB PO BID UNKNOWN #60 (Reported) Entered as Reported by January Cline on 01/29/18 1202 Gabapentin 300 MG CAPSULE 2 CAP PO TID UNKNOWN #180 (Reported) Entered as Reported by January Cline on 01/29/18 1200 Olanzapine 15 MG TABLET 15 MG PO AT BEDTIME Schizoaffective #30 TAB Prescribed by Antwan Aleman MD on 12/15/17 Last Taken: 5 MG on 02/23/18 1015 Quetiapine Fumarate 100 MG TABLET 1 TAB PO TID MENTAL HEALTH #90 (Reported) Entered as Reported by January Cline on 01/29/18 1202 Consequences of Psych Med Use: none reported Past History Past Medical History Neurological: NONE, SKULL FRACTURE A BABY EENT: NONE Cardiovascular: NONE Respiratory: NONE Gastrointestinal: NONE Hepatic: NONE Renal: NONE Musculoskeletal: NONE Psychiatric: psychosis, schizo affective disorder, substance abuse (Cannabus Use Disorder), Attention-deficit/hyperac tivity disorder Endocrine: NONE Blood Disorders: NONE Cancer(s): NONE 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 Primary Childhood Caretakers: mother Family Life During Childhood: pt described his childhood as "dysfunctional" father lives in [place]. Pt visited with his father in 2016. DCF Involvement? Yes (one ) Explain: pt could not elaborate Mother's Age (Current/): 43 Relationship w/Mother: close and supportive Father's Age (Current/): 45 Relationship w/Father: Parent when pt was 4 years old. Pt reunited with his father in [place] in 2016 after many years. PT reports relationship is not well Any Sibling(s)? Yes Sibling's Gender(s)/Age(s): male Sibling 1:, female Sibling 2:, female Sibling 3: Relationship w/Sibling(s): close supportive Relationship w/Friends: pt says he has many supportive friends Family Psych/Sub Abuse/Add Hx: drug of choice Abuse/Trauma History Trauma History/Current Trauma: Denies, pt did not specify Victim or Perpretator? perpretator Patient's Age at Time of Trauma: 12 History of Trauma/Abuse Treatment? No Abuse/Trauma Treatment: n/a Legal History Legal Guardian/Address/Phone: n/a Current Legal Status: none Pending Court Dates: none Have you ever been arrested No Number of Arrests: 0 Hx of Juvenile Legal Charges? No Hx of Adult Legal Charges? No Civil Proceedings: n/a Domestic Relations Court: n/a Child Protective Serv Involvmnt n/a Sample Checker n/a Psychosocial History Primary Support System: father, mother, sibling(s), friend Strengths/Capabilities: Mother brings him to the ED when she believes he needs help pt is likeable and cooperative pt reports his strength as " being smart, funny and strong" Weaknesses: pt reports"My smile" pt has not followed through with IOP in past Physical Limitations (Interventions): None reported Last Physical: 2016 History of Seizures? No History of Blackouts? No ADL Limitations: none reported Sully/Social/Peer Relations pt says he has supportive family and friends Meaningful Activities: wrestling, running, working out, hackie sac. Childhood Uatsdin: Shinto Current Uatsdin Affiliation: Shinto, no restorationism stated Is Spirituality Important to You? Yes "I believe everyone should love one another.' Patient's Ethnicity: (Moroccan), [place] Islander Cultural/Ethnic Issues: [place] Islander/ understands Moroccan Are There Developmental Issues? No Milestones Achieved: fine motor, gross motor Psychiatric Treatment History Psych Treatment Inpatient Treatment Yes Outpatient Treatment Yes Location of Treatment [facility], [facility], [place] [facility] Reason for Treatment +SI +command hallucinations non complaince w/ psychiatric medications leading to decline in functioning Dates of Treatment Last CPS discharge 11/2017, [facility]- 01/2018 Response to Treatment pt reponds well to medications however when he is off his medications he rapidly declines Treatment of Prior Episodes: [facility] Diagnosis: Attention-deficit/hyperactivity disorder, as a child Depression Psychosis Cannabis use Schizoaffetctive Disorder Psychodynamic Issues: Recently learn that his girlfriend is 4 months . Risk Factors: age (under 24/over 65), high anxiety/distress, SA/MH hospitalized, substance abuse, poor impulse control, male, limited support Substance Use/Abuse History Drug Use/Abuse:Min 12 mo hx Substance Used/Abused Marijuana Last Used 02/21/18 How much used/taken 2-3 joints How often daily For how long years Route of use inhale Have Had Periods of Sobriety? Yes Explain: one month Relapse History? Yes Explain: once Have You Ever Attended AA? Yes Do You Attend AA Currently? No Do You Have a Sponsor? No Symptoms of Use: cannabis- smokes 2-3 joints daily pt believes his friend puts ginacarlo in the joints some times Substance Abuse Treatment Substance Abuse Treatment Inpatient Treatment Yes Outpatient Treatment Yes Location of Treatment [facility] Reason for Treatment depression and substance use Sexual History Sexually Active Yes # of partners 7 Sexual Orientation Heterosexual Use of Protection Yes Sometimes Sexual Concerns: denies Education History Highest Level of Education: high school/GED Highest Grade Completed: High School Vocational Year Completed: n/a Number of College Years: 0 College Degree/Major: n/a Other Degree(s): n/a Preferred Learning Style: visual, auditory, experiential HX of Learning Difficulties: None reported Barriers to Learning: None reported Special Communication Needs: None reported Employment History Employment Employed No. of Jobs in Last 5 Years: 3 Attendance: Normal Performance: Below Average History Have You Been in The ? No Date of Discharge: n/a Current Mental Status Problem List: 1. Depression 2. Substance abuse Mental Status Orientation: Confused Affect: Blunted, Variable Speech: Mumbled, Soft Neuro-vegetative: Concentration Poor, Sleep Disturbance Appearance Appearance- Dress/Hygiene: Pt presents in hospital attire. He has unkempt hair that is in the Afro style. Behaviors Thought Process: Disorganized, WNL Thought Content: Paranoid Memory: Impaired Insight: Poor SI/HI Risk Assessment Past Suicidal Ideation/Attempts Yes Current Suicidal Ideation/Att No Past Homicidal Ideation/Att: Yes Current Homicidal Ideation/Attempts No Degree of Intent: Plan Danger To: Self Gravely Disabled: Inability Lethality Ratin - Conclusion and Recommendations for treatment - and discharge planning Summary: The patient has a supportive mother. The patient is still depressed and slightly paranoid. He is safe on the unit. He is employed and can identify personal strengths. The patient seems motivated to receive treatment for mental health and substance abuse.
--- NOTE | 2018-02-24 12:03 | CPS PROVIDER INIT ASMT PSYCH ---
Psychiatric Admission International Logistics Coordinator's Note Reviewed: Yes Patient Seen and Examined: Yes Identifying Information: Hawk is a 18-year-old single Chief Complaint: "I hear echoes of voices, 3-21 different voices" Reaction to Hospitalization: Patient was admitted voluntarily History of Present Illness Onset of Illness: The patient has been here previously at [facility]'s inpatient psychiatric unit in November 2017. The recent episode of illness started probably soon after his release from [facility] in [place]. Patient was released approximately 3-4 weeks ago Circumstances Leading to Admission: As per Radha Rod LCSW's note of 02/22/2018; "Patient is a 18 year old male brought into the ED by his mother earlier today. This is the patient's 4th presentation to the ED since his last discharge to [facility] in November 2017. Pt was referred to [facility] multiple times for intakes and he does not follow through. Pt's last IP hospitalization was at [facility] following ED visit on 01/28/18. Pt is on [facility]'s Community Care Team (CCT). Pt is diagnosed with Schizoaffective Disorder, Bipolar Type and Cannabis Use Disorder. Pt's utox is positive for Cannabis and he reports smoking 2-3 joints daily. When asked about other drugs he states he thinks he "boy puts giancarlo in the joints sometimes". Pt's BAL was zero and he reports doesn't like alcohol. Pt reports prior cocaine use, but stated last use was 6 years ago." Problem(s) Justifying Need for Admission: Please see above Past Psychiatric History Past Diagnosis(es)- if any: F25.9 Schizoaffective Disorder, Bipolar Type F12.20 Cannabis Use Disorder, Severe Past Precipitating Factors- if any: Cannabis use - Include inpatient and outpatient treatment Treatment History: Most recent inpatient psychiatric admission was at [facility] in [place], [place]. Patient was discharged couple of days after his birthday ([birth year] Before that he was at the inpatient psychiatric unit at [facility] in November 2017 Hawk was also at [facility] x3 in 2017, Did IOP as well No current active treatment History of Suicide Attempts or Gestures Patient has not had any actual suicide attempts. He has had recurrent suicide thoughts in the past Substance Abuse History: Patient smokes tobacco and marijuana daily Allergies: Coded Allergies: cashew nut (Severe, THROAT CLOSURE 01/05/17) Fish Containing Products (Intermediate, SWELLING 01/08/18) shellfish derived (THROAT CLOSES 01/28/18) Home Med List: It seems that the patient may have run out of medications after his discharge from [facility] in [place]. He may have run out of medications approximately 2 weeks ago (or he may even have stopped them as soon as he left [facility]) - Include any medical condition(s) that may - impact the patient's recovery/remission Past Medical History: No significant medical or surgical problems Past History Medical History Neurological: NONE, SKULL FRACTURE A BABY EENT: NONE Cardiovascular: NONE Respiratory: NONE Gastrointestinal: NONE Hepatic: NONE Renal: NONE Musculoskeletal: NONE Psychiatric: psychosis, schizo affective disorder, substance abuse (Cannabus Use Disorder), Attention-deficit/hyperac tivity disorder Endocrine: NONE Blood Disorders: NONE Cancer(s): NONE 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 The last time he was on Inpatient Psychiatry he was working at [employer] Legal: He denied facing any charges or court hearings Healthly Behaviors Screening Tobacco Screening Tobacco Use from ED Docu: Never used - If tobacco counseling indicated - the following topics are required. - #1 Recognizing dangerous situations. - #2 Coping Skills. - #3 Basic information about quitting. Status of Tobacco Cessation Counseling: Cognitive Impairment Cessation Med Status Nicotine Gum Ordered Alcohol Screening - ETOH screen POS if BAL >=80 or Audit-C>= M4/F3 Audit-C Score from Diag Assess: 0 Blood Alcohol Level: Laboratory Tests 02/22 08 Toxicology Serum Alcohol (<10 MG/DL) < 10.0 Alcohol Use Screening Results: Neg per Audit C &/or BAL - If ETOH counseling indicated - the following topics are required. - #1 Express concern about the patient's - drinking at unhealthy levels, include informing - of national norms for moderate drinking: - men <= 14 drinks/week, max 4 drinks/occasion - women <= 7 drinks/week, max 3 drinks/occasion - #2 Providing feedback, including linking alcohol to - negative physical effects (liver injury, hypertension) - negative emotional effects (relationship problems and - depression) - negative occupational consequences (reduced work - performance) - #3 Advising the patient to abstain from alcohol or - to drink below national norms for moderate drinking - (as listed above). Status of ETOH Use Counseling: N/A B/C NO ETOH Use Metabolic Screening - Screen if on a Neuroleptic Medication - Metabolic screening should include: - Blood Pressure, BMI, Glucose or Hgb A1c, & a - Lipid profile from within the past 365 days. Metabolic Screening Patient on a neuroleptic(s) . Enter below results for Hemoglobin A1C, and lipid panel if obtained during the last 365 days. BMI: 20.300 Blood Pressure: 133/64 Laboratory Results From [facility] (If applicable): Lab Cholesterol 105 MG/DL 12/11/17 0646 Cholesterol/HDL Ratio 3 % 12/11/17 0646 Glucose 89 mg/dL 02/22/18 0806 HDL Cholesterol 38 mg/dL L 12/11/17 0646 LDL Cholesterol, Calc 54 mg/dL L 12/11/17 0646 Triglycerides 68 mg/dL 12/11/17 0646 Exam and Plan Mental Status Examination Ambulation Status: The patient was steady in his gait Appearance: Long curly hair Attitude towards examiner: Calm and cooperative Psychomotor activity: Normal psychomotor activity Behavior: No abnormal behaviors Quality of speech: Normal speech Affect: Constricted affect Mood: Depressed mood Suicidal Ideation: Denied thinking of suicide today Homicidal Ideation: Denied thinking of homicide or violence today Hallucinations: He acknowledged multiple hallucinations Paranoid/Delusional Material: He acknowledged feeling paranoid, there were no specific delusions during the interview Difficulties with thought organization: He does have difficulties with thought organization Insight: Partial insight Judgment: Chronically impaired judgment by history Orientation: He was alert and oriented to place and person Cognition: He does have difficulties with attention concentration and information processing Memory Function: No evidence of gross impairment in short-term memory Estimate of intellectual functioning: Average Assets/Strengths Patient Identified Assets/Strengths: The patient is physically healthy likable and has a supportive mother Impression/Plan Impression and Plan: 18-year-old who was admitted because of acute psychotic decompensation. The patient is a has had numerous inpatient psychiatric hospitalizations and does not have schizoaffective disorder as well as cannabis use disorder. - Include all active medical diagnosis that require tx DSM 5 Diagnosis(es): Schizoaffective disorder, cannabis use disorder - Initial Tx Plan for Active Psych & Medical Conditions Treatment Plan: Inpatient psychiatric care with safety checks every 15 minutes Continue/resume Zyprexa 15 mg at bedtime PRN Ativan for anxiety or insomnia - Factors that would help patient function - in a less restrictive setting. Factors: Patient would be discharge once his psychosis he was sufficiently cleared up
--- NOTE | 2018-02-24 15:23 | SOCIAL WORKER PROG NOTE PSYCH ---
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 His affect is depressed. He had difficulty staying focused during interview.He looked distracted potentially by internal stimuli. When I met with the patient he was in bed wearing his scrubs. He appeared tired. He was engaged and cooperative for the interview. His speech was soft and mumbled. The patient reported his mood to be "good" despite saying that he hates being in the hospital. I inquired about the patient's cannabis use which he minimized saying he smokes one joint a day. He expressed that the cannibis makes him feel paranoid. He described his energy as "getting there". He did not report having any trouble sleeping last night. He plans to attend groups on the unit while here. He denied having hallucinations. I asked what his thoughts were on after care and he mentioned Care as an option. I completed Bk's social history with him in the late morning as well. He signed a release for his mother and for Care.
[2018-02-24 19:53] VITALS: BP 140/87
[2018-02-25 07:49] VITALS: BP 114/75
--- NOTE | 2018-02-25 11:31 | CP SOUTH PROGRESS NOTE PSYCH ---
Psych (Inpt) Progress Note Progress Note Pt notes that his sleep has improved dramatically. As such, his mood has improved as well as, "when I don't sleep I get suicidal." He notes mood is "pretty good." Plans on speakng with gf and family today, which he enjoys. Denies SI or HI. Current Medications Sig/Federico Start time Last Medication Dose Route Stop Time Status Admin Al Hydroxide/Mg 30 ML Q4-6 PRN PRN 02/23 1445 AC Hydroxide PO Ibuprofen 400 MG Q6-PRN PRN 02/23 1445 AC PO Lorazepam 1 MG AT BEDTIME NEED.. 02/24 1145 AC 02/24 PO 2308 Lorazepam 1 MG Q4 HRS NEEDED PRN 02/22 1545 AC PO Lorazepam 2 MG AT BEDTIME NEED.. 02/22 1545 DC 02/23 PO 2309 Magnesium Hydroxide 30 ML AT BEDTIME PRN 02/23 1445 AC PO Olanzapine 15 MG 2100 02/23 2100 AC 02/24 PO 2116 Vital Signs Date Time Temp Pulse Resp B/P B/P Pulse O2 O2 Flow FiO2 Mean Ox Delivery Rate 02/25 0749 97.0 76 114/75 02/24 1953 98.5 75 140/87 MSE Appearance: as stated age Speech : nl rate, rhythm, volume and prosody Behavior: cooperative Motor: + psychomotor retardation Mood : pretty good Affect : still flat, non-labile, not irritable, appropriate, constricted Thought process: linear and goal directed Thought content : no delusions or paranoia Perceptions: denied AVHs, denied SI or HI Insight: poor Judgment: poor A/P: Pt with hx of schizoaffective disorder now iwth improved sleep and mood. - Continue current medication regimen
[2018-02-25 19:45] VITALS: BP 110/63
[2018-02-26 07:49] VITALS: BP 107/68
--- NOTE | 2018-02-26 11:59 | CP SOUTH PROGRESS NOTE PSYCH ---
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 He is worried that others will steal his raps. Denies SI or HI reported some difficult with sleep. Current Medications Sig/Federico Start time Last Medication Dose Route Stop Time Status Admin Al Hydroxide/Mg 30 ML Q4-6 PRN PRN 02/23 1445 AC Hydroxide PO Ibuprofen 400 MG Q6-PRN PRN 02/23 1445 AC PO Lorazepam 1 MG AT BEDTIME NEED.. 02/24 1145 AC 02/25 PO 2133 Lorazepam 1 MG Q4 HRS NEEDED PRN 02/22 1545 AC PO Magnesium Hydroxide 30 ML AT BEDTIME PRN 02/23 1445 AC PO Olanzapine 15 MG 02/23 AC 02/25 PO 213 Trazodone HCl 50 MG AT BEDTIME 02/26 2100 AC PO Vital Signs Date Time Temp Pulse Resp B/P B/P Pulse O2 O2 Flow FiO2 Mean Ox Delivery Rate 02/26 0749 97.0 86 107/68 02/25 1945 98.2 75 110/63 MSE Appearance: as stated age Speech : nl rate, rhythm, volume and prosody Behavior: cooperative Motor: + psychomotor retardation Mood : good Affect : still flat, non-labile, not irritable, appropriate, constricted Thought process: linear and goal directed Thought content : ++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 - Added trazodone for sleep - Otherwise continue meds
--- NOTE | 2018-02-27 08:21 | CP SOUTH PROGRESS NOTE PSYCH ---
Psych (Inpt) Progress Note Progress Note I reviewed Dr. Morales's notes for the weekend of February 25 and 2017. 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 denied AVHs, denied SI or HI Asessment: Pt with hx of schizoaffective disorder now with improved mood though continued underlying psychotic process. Treatment Plan Update: Continue same medications Current Medications Lorazepam 1 MG AT BEDTIME NEED.. 02/24 1145 AC 02/25 Lorazepam 1 MG Q4 HRS NEEDED PRN 02/22 1545 AC 02/26 Magnesium Hydroxide 30 ML AT BEDTIME PRN 02/23 1445 AC Olanzapine 15 MG 2100 02/23 2100 AC 02/26 Trazodone HCl 50 MG AT BEDTIME 02/26 2100 AC 02/26 - Added trazodone for sleep - Otherwise continue meds DICTATED BY: Carmen MCGEE,Miguel Ángel Rico
[2018-02-27 08:42] VITALS: BP 107/56
--- NOTE | 2018-02-27 16:10 | SOCIAL WORKER PROG NOTE PSYCH ---
Social Work Progress Note Progress Note Bk participated in groups today. He presented today as calm and cooperative with no apparent psychosis. He is willing to be referred to [facility] for services. He said he got uncomfortable the last time he went there, but he was willing to try it again. He thinks that one on one work would be better for him than group. He reported liking his new job. 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 His Mother got him this job. Isn't engaged in much during the day. Plays video games and listens to music. 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 Asked how his relationship is with his Mother? He said it is going well, but his Mother "babies" him. He said she does alot for him and even gives him money to purchase marijuana when he is struggling. He stated he is smoking 1x a month. Denies using Neena. States he uses when he is stressing over issues. Reports his mood is "so, so" today. Said it's hard staying positive around others who are struggling on the unit. Denies any AH/VH. Sleep and appetite are okay. Hoping to discharge soon to return to work.
[2018-02-27 19:35] VITALS: BP 144/66
[2018-02-28 07:58] VITALS: BP 102/67
--- NOTE | 2018-02-28 08:27 | CP SOUTH PROGRESS NOTE PSYCH ---
Psych (Inpt) Progress Note Progress Note The patient's progress, inpatient treatment plan, and aftercare plans were discussed in the treatment planning meeting (team members: Precious Ritchie LCSW; Brittny Wahl RN; OTR/L, and Antwan Aleman MD, psychiatrist) Vital Signs: Date Time Temp Pulse B/P B/P 02/28 0758 97.1 77 102/67 Mental Status: The patient seemed to be in good spirits today. He was alert, animated, and with a good range of affect. The patient's speech was normal. 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 denied AVHs, denied SI or HI Asessment Update: The patient is a 18-year-old single with hx of schizoaffective disorder now with improved mood though continued underlying psychotic process. Treatment Plan Update: Olanzapine 15 MG QHS Change Trazodone HCl 50 MG AT BEDTIME to PRN Olanzapine 15 MG 2100 02/23 2100 AC 02/26 Trazodone HCl 50 MG AT BEDTIME 02/26 2100 AC 02/26
--- NOTE | 2018-02-28 10:42 | SOCIAL WORKER PROG NOTE PSYCH ---
Social Work Progress Note Progress Note Left Tonie a voicemail and asked for a call back with an intake for Bk, and asked her about [facility].
--- NOTE | 2018-02-28 11:00 | SOCIAL WORKER PROG NOTE PSYCH ---
Social Work Progress Note Progress Note [facility]ake with [facility] is set up on Tuesday03/08/18 at 12:30p. This is the soonest appt available.
--- NOTE | 2018-02-28 16:12 | SOCIAL WORKER PROG NOTE PSYCH ---
Social Work Progress Note Progress Note Bk described his day as "eventful." He enjoyed the art group. He is reading a Men's health magazine. He is interested in returning to the gym to work out. He no longer has a gym membership, but may open one again. He was wearing a towel around his neck. I asked what the towel was for? He said "in case something spills." He is feeling somewhat groggy today. States it's from the meds. He states the grogginess may be an issue for him, which may cause him to not want to take them. He mentioned that he is on alot of electronics at night and doesn't feel he would be able to function with the meds. He also offered that he should cut back on the amount of time he spends on electronics. I emphasized the need for him to find alternative hobbies in the evening like writing, reading, yoga ect.. Talked about having lots of anxious/ restless energy. He rates his anxiety today at a 6 (0-10, 10 being severe). Denies feelings of sadness today, stating he is trying to stay positive. He is putting alot of emphasis on the relationship that he has with his girlfriend. His goal is to be at some point so he can have someone to support him. This would help him feel more secure. Encouraged him to work on building up his own confidence and resources as well.
[2018-02-28 20:07] VITALS: BP 116/59
[2018-03-01 08:26] VITALS: BP 122/61
--- NOTE | 2018-03-01 10:29 | SOCIAL WORKER PROG NOTE PSYCH ---
Social Work Progress Note Progress Note TC Tonie/Admissions [facility] [phone], [phone] - left VM asking for call back to Precious Ritchie LCSW with date/time of prescriber appointment.
--- NOTE | 2018-03-01 12:08 | CP SOUTH PROGRESS NOTE PSYCH ---
Psych (Inpt) Progress Note Progress Note The patient's progress, inpatient treatment plan, and aftercare plans were discussed in the treatment planning meeting (team members: Precious Ritchie LCSW; Brittny Wahl RN; OTR/L, and Antwan Aleman MD, psychiatrist) Vital Signs: Date Time Temp Pulse B/P B/P Pulse O2 FiO2 03/01 826 97.0 95 122/61 02/28 2007 97.8 74 116/59 Mental Status: The patient is alert, animated, and with a good range of affect. The patient's speech was normal. He was calm and cooperative, and he reported that his mood is "good." Pt. feels bored, denied SI or HI, denied hallucinations there were no obvious delusions, no obvious thought disorder Asessment Update: The patient is a 18-year-old single who was admitted with acut disorganization of thought and some delusions The patient showed quick and significant improvement in underlying psychotic process. Treatment Plan Update: continue same medication The patient will most likely be discharged tomorrow.
--- NOTE | 2018-03-01 13:30 | SOCIAL WORKER PROG NOTE PSYCH ---
Social Work Progress Note Progress Note Bk reports he is just trying to stay busy to pass the time. Anticipating discharge. Told him we are planning for discharge tomorrow. He gets anxious about his insurance bill for being here. He wants to get on his own insurance and start taking responsibility for some things on his own. Mentioned wanting to get a calendar to sneha things down that he needs to do. Encouraged that idea. Continues to talk about how his Mother "babies" him. He mentioned speaking to her recently and said he may see her this evening. Reviewed his d/c information and mentioned that he may need to set up a "bridge" appt. with [facility] to ensure he doesn't run out of meds. Looking to discharge late morning tomorrow. Spoke with Bk's Mother. She was informed of his discharge for tomorrow. She was also made aware of his [facility] appt. She would like to know any other appts. he may have so she can ensure that he gets there. She said he lost his job that he had at [employer], because he was only there 1 day and then ended up in the hospital. She said she informed Bk of this. She said he thinks she is lying. She doesn't feel he should go back to work right now. She plans on quitting her 2nd job as well, so she can stay home more in the evening with him. She is also working from home a couple days a week. She is looking to help keep him more structured. I asked her about helping Bk get off of her insurance and on [employer]. She said she was trying to cancel her application online through [employer] so that he can submit his own.
[2018-03-01 19:51] VITALS: BP 122/71
[2018-03-02 07:59] VITALS: BP 128/53
[2018-03-02] MEDS ORDERED: OLANZAPINE15 M1 PO (08:23)
[2018-03-02] MEDS ORDERED: TRAZODONE HCL50 M1 PO (08:23)
[2018-03-02] MEDS ORDERED: NICORELIEF4 MG PO (08:29)
--- NOTE | 2018-03-02 09:52 | CP SOUTH PROGRESS NOTE PSYCH ---
Psych (Inpt) Progress Note Progress Note The patient's progress, inpatient treatment plan, and aftercare plans were discussed in the treatment planning meeting (team members: Precious Ritchei LCSW; Brittny Wahl RN; OTR/L, and Antwan Aleman MD, psychiatrist) Mental Status: The patient is alert, oriented, in good spirits and looking forward to discharge today animated, and with a good range of affect. The patient's speech was normal. He was calm and cooperative, and he reported that his mood is "good." Pt. denied SI, denied violent thoughts or thoughts of homicide, denied hallucinations there were no obvious delusions, no obvious thought disorder Asessment Update: The patient is a 18-year-old single who was admitted with acut disorganization of thought and some delusions The patient showed quick and significant improvement in underlying psychotic process. Treatment Plan Update: D/C home
--- NOTE | 2018-03-02 12:11 | SOCIAL WORKER PROG NOTE PSYCH ---
Social Work Progress Note Progress Note A "bridge" appt was made with [facility] for next Wednesday 03/07 at 12:15 with Shelia Fish APRN. Met with Bk late morning. He was participating in group prior. Reviewed his follow up appts. with him. Reports a good visit with his Mom and his StepFather last evening. They played cards. His Mother is picking him up today. I told him I was sorry to hear that he lost his job. He admitted feeling a little disappointed about that, but is hopeful he can find another job. 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 Encouraged him to continue to pursue his dreams, but to continue to have a job to pay the bills. He said Mom and him talked about going to the gym together. He is looking forward to that. Reports some anxiety about electronics and how much time he spends on electronics. This seems to be something he is stressing about. He is thinking about how he will be trying to change this. Ready to go home. Called his Mother, she will pick him up at 12:30 outside in the ED parking area.
--- NOTE | 2018-03-02 12:16 | Patient Discharge Instructions ---
Psych Discharge Inst General Discharge Information Reason for Admission: disorganized thinking Psy Discharge Primary Diag+ Schizoaffective DO Psy Discharge Secondary Diag+ Cannabis Use Disorder Summary Tests/Major Procedures Lab Cholesterol 105 MG/DL 12/11/17 0646 Cholesterol/HDL Ratio 3 % 12/11/17 0646 HDL Cholesterol 38 mg/dL L 12/11/17 0646 Hemoglobin A1c 5.1 % 12/11/17 0646 LDL Cholesterol, Calc 54 mg/dL L 12/11/17 0646 Triglycerides 68 mg/dL 12/11/17 0646 Studies Pending at DC: none Patient Instructions Contact Information Your Psychiatrist on [facility] was Ash MCGEE,Antwan * If you are experiencing an emergency related to this hospitalization, please call [phone] to contact the treating psychiatrist or the psychiatrist-on- call. * To Request a copy of your medical records, please contact the Medical Records Department at [phone]. * To request results of studies pending at the time of discharge, please call [phone]. * Continue your Medications until directed to stop by your Healthcare provider. General Medication Information Please continue to take your new medications and your continued home medications , unless otherwise indicated on your discharge medication list, or unless directed by your MD or FUR WEIGHER to stop them. Special Instructions Diet Regular Activity Normal - Tobacco Use Treatment Offered Post DC Medications Offered: Script Given-See Med List Post DC Tobacco Treatment Plan: Refused Tobacco Tx Pgm - EtOH/Drug Use D/O Treatment Offered Post DC Medications Offered: Med Not Indicated for D/O Post DC EtOH/SubAbuse TX Plan: Refused Post DC Tx Pgm Metabolic Screening Patient on a neuroleptic(s) . Enter below results for Hemoglobin A1C, and lipid panel if obtained during the last 365 days. BMI: 20.300 Blood Pressure: 128/53 Laboratory Results From [facility] (If applicable): Lab Cholesterol 105 MG/DL 12/11/17 0646 Cholesterol/HDL Ratio 3 % 12/11/17 0646 HDL Cholesterol 38 mg/dL L 12/11/17 0646 Hemoglobin A1c 5.1 % 12/11/17 0646 LDL Cholesterol, Calc 54 mg/dL L 12/11/17 0646 Triglycerides 68 mg/dL 12/11/17 0646 Advance Directives Does the Patient have Medical Advance Directives No/Refused further info Does Pt have Psychiatric Advance Directives? No/Refused further info Does Patient have a Designated Surrogate Decision Maker: No Information About Psychiatric Advance Directives Provided? Refused Discharge Plan Post Hospital Treatment Plan: Amanda
--- NOTE | 2018-03-02 13:56 | SOCIAL WORKER PROG NOTE PSYCH ---
Social Work Progress Note Faxed Referral(s) 1 Referred To: OPS Transition of Care Documents sent: Health Summary Faxed to: OPS Fax #: [phone] Faxed by: Precious Ritchie Date faxed: 03/02/18 Time Faxed: [phone] Faxed Referral(s) 2 Referred To: Care Transition of Care Documents sent: Health Summary Faxed to: [facility] Fax #: [phone] Faxed by: Precious Ritchie Date faxed: 03/02/18 Time Faxed: [phone]
--- NOTE | 2018-03-02 13:57 | DISCHARGE SUMMARY REPORT-PSYCH ---
Visit Information Visit Dates/Diagnosis' Admission Date: 02/23/18 Discharge Date: 03/02/18 Reason for Admission: disorganized thinking Psy Discharge Primary Diag: Schizoaffective DO Psy Discharge Secondary Diag: Cannabis Use Disorder Hospital Course Course Allergies: Coded Allergies: cashew nut (Severe, THROAT CLOSURE 01/05/17) Fish Containing Products (Intermediate, SWELLING 01/08/18) shellfish derived (THROAT CLOSES 01/28/18) Hospital Course/TX Response: The patient's progress, inpatient treatment plan, and aftercare plans were discussed in the treatment planning meeting (team members: Precious Ritchie LCSW; Brittny Wahl RN; OTR/L, and Antwan Aleman MD, psychiatrist) Mental Status: The patient is alert, oriented, in good spirits and looking forward to discharge today animated, and with a good range of affect. The patient's speech was normal. He was calm and cooperative, and he reported that his mood is "good." Pt. denied SI, denied violent thoughts or thoughts of homicide, denied hallucinations there were no obvious delusions, no obvious thought disorder Asessment Update: The patient is a 18-year-old single who was admitted with acut disorganization of thought and some delusions The patient showed quick and significant improvement in underlying psychotic process. Treatment Plan Update: D/C home Discharge HBIPS - Tobacco Use Treatment Offered - EtOH/Drug Use D/O Treatment Offered Metabolic Screening - Screen if on a Neuroleptic Medication - Metabolic screening should include: - Blood Pressure, BMI, Glucose or Hgb A1c, & a - Lipid profile from within the past 365 days. Discharge Instructions General Discharge Information Discharge Diet Regular Discharge Activity Normal Referrals Ordered Referrals [facility] 03/08/18 [address], [place] [id number] [facility] Intake appt. 03/08/18 12:30pm [address] [place] [address] Provider Referral 03/07/18 For Groups: Outpatient Psychiatry [facility] "Bridge" appt. with Shelia Fish APRN 03/07/18 12:15pm [place]aynab [place]man [place] [id number] Bring ID and Insurance card. Prescriptions Stop taking the following medications: Dextroamphetamine/Amphetamine (Adderall 20 MG Tablet) 20 MG TABLET ORAL DAILY Gabapentin (Gabapentin) 300 MG CAPSULE ORAL THREE TIMES DAILY Qty = 180 Quetiapine Fumarate (Quetiapine Fumarate) 100 MG TABLET ORAL THREE TIMES DAILY Qty = 90 Divalproex Sodium (Divalproex Sodium) 500 MG TABLET.DR ORAL TWICE DAILY Qty = 60 Continue taking these medications: Olanzapine (Olanzapine) 15 MG TABLET 15 Milligram ORAL AT BEDTIME Qty = 30 Comments: Last Taken:03/01/18 Time:2123 This prescription has been renewed Start taking the following new medications: Trazodone HCl (Trazodone HCl) 50 MG TABLET 50 Milligram ORAL AT BEDTIME as needed for insomnia Qty = 15 No Refills Comments: Last Taken:02/28/18 Time:2225 Nicotine Polacrilex (Nicorelief) 4 MG GUM 1 Gum ORAL EVERY 2 HOURS NEEDED as needed for smoking cessation Qty = 30 No Refills Comments: Last Taken:NOT USED IN HOSPITAL Time: Studies Pending at Discharge none
== END 2018-03-02 12:51 | DRG 885 ==
LOC: ERH 07:34 → ERHI 02-23 14:46 → CP SOUTH 02-23 14:46
PROVIDERS: Emergency Medicine
DX: F25.9 Schizoaffective disorder, unspecified (principal); F12.90 Cannabis use, unspecified, uncomplicated
CPT/HCPCS: 80307; G0463; G0480

== ENCOUNTER 2018-03-13 01:42 | Emergency (ER) | payer OTHER ==
[~2018-03-13] VITALS: Ht 182.9 cm; Wt 69.9 kg
[~2018-03-13 01:42] MED LIST changes: +NICORELIEF4 MG PO; +TRAZODONE HCL50 M1 PO
--- NOTE | 2018-03-13 02:11 | ED PSYCHIATRIC COMPLAINT ---
History of Present Illness General Chief Complaint: Psychiatric Related Complaint Stated Complaint: DEPRESSION Source: patient, family Exam Limitations: no limitations Vital Signs & Intake/Output Vital Signs & Intake/Output Vital Signs Date Time Temp Pulse Resp B/P B/P Pulse O2 O2 Flow FiO2 Mean Ox Delivery Rate 03/13 1333 98.0 72 18 123/73 96 03/13 1015 98.0 60 20 110/60 99 Room Air 03/13 0640 95.2 62 18 106/55 99 Room Air 03/13 0220 96 Room Air 03/13 0201 97.6 74 18 126/82 98 Room Air Allergies Coded Allergies: cashew nut (Severe, THROAT CLOSURE 01/05/17) Fish Containing Products (Intermediate, SWELLING 01/08/18) shellfish derived (THROAT CLOSES 01/28/18) Reconcile Medications Nicotine Polacrilex (Nicorelief) 4 MG GUM 1 GUM PO Q2 HRS NEEDED PRN smoking cessation Olanzapine 15 MG TABLET 15 MG PO AT BEDTIME Schizoaffective Trazodone HCl 50 MG TABLET 50 MG PO AT BEDTIME PRN insomnia Triage Note: TRIAGE: PATIENT TO ER FROM HOME REPORTING "HAVING ANOTHERT MANIC EPISODE S/P SMOKING WEED TODAY." PER MOM, "HE SHAVED HIS HEAD AND WROTE ALL OVER HIS BODY AGAIN. HX OF SAME. HAS BEEN IN AND OUT OF HERE MANY TIMES." DENIES OTHER DRUG USE/ ETOH USE. DENIES SI/HI. Triage Nurses Notes Reviewed? yes Onset: Gradual Duration: day(s):, waxing and waning Timing: recent history Severity: moderate Associated Symptoms: anxiety, suicidal ideation HPI: 18 yo gentleman h/o schizoaffective disorder evaluated last week in the ED, returns with suicidal ideation, homicidal ideation. Per his mother, "he is writing on himself. He hasn't slept in days... When he takes his medications he is better, but I don't think he took his meds today... He has been smoking marijuana, a lot." He reports +SI, +HI, denies hallucinations. (Milagros MCGEE,Bhaskar Napier) Past History Travel History Traveled to [place] past 21 day No Medical History Any Pertinent Medical History? 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 No (Milagros MCGEE,Bhaskar Napier) Review of Systems Review of Systems Constitutional: Reports: no symptoms. EENTM: Reports: no symptoms. Respiratory: Reports: no symptoms. Cardiovascular: Reports: no symptoms. GI: Reports: no symptoms. Genitourinary: Reports: no symptoms. Musculoskeletal: Reports: no symptoms. Skin: Reports: no symptoms. Neurological/Psychological: Reports: no symptoms. Hematologic/Endocrine: Reports: no symptoms. Immunologic/Allergic: Reports: no symptoms. All Other Systems: Reviewed and Negative (Milagros MCGEE,Bhaskar Napier) Physical Exam Physical Exam General Appearance: well developed/nourished, mild distress Head: atraumatic Eyes: Bilateral: PERRL, EOMI. Ears, Nose, Throat: normal pharynx, normal ENT inspection Neck: normal inspection, supple, full range of motion Respiratory: normal breath sounds Cardiovascular: regular rate/rhythm Gastrointestinal: normal bowel sounds Neurological/Psychiatric: no motor/sensory deficits, flat, oriented x 3 Appearance/Memory/Insight: appropriate appearance, appropriate insight, denies illness Thoughts/Hallucinations: no apparent hallucination Skin: intact, normal color, warm/dry SAD PERSONS SAD PERSONS Response Value Male Sex? yes 1 Depression/Hopelessness? yes 2 Excessive Ethanol/Drug Use? yes 1 Rational Thinking Loss? yes 2 Single//? yes 1 Social Support? has support 0 Total 7 SAD PERSONS Done? yes (Milagros MCGEE,Bhaskar Napier) Progress Differential Diagnosis: schizoaffective vs other. Plan of Care: Orders Procedure Date/time Status Regular Diet 03/14 B Active Continuous Observation Monitor 03/13 211 Active URINE DRUG SCREEN FOR ER ONLY 03/13 211 Complete ETHANOL 03/13 211 Complete COMPREHENSIVE METABOLIC PANEL 03/13 211 Complete CBC WITHOUT DIFFERENTIAL 03/13 211 Complete ED CRISIS PSYCH CONSULT 03/13 211 Active Laboratory Tests 03/13/18 1205: Urine Opiates Screen < 100, Methadone Screen 41, Barbiturate Screen < 60, Ur Phencyclidine Scrn < 6.00, Amphetamines Screen < 100, U Benzodiazepines Scrn < 85, Urine Cocaine Screen < 50, Urine Cannabis Screen > 80.00 H 03/13/18 0225: Anion Gap 9, Estimated GFR > 60, BUN/Creatinine Ratio 21.3, Glucose 97, Calcium 9.1, Total Bilirubin 0.3, AST 25, ALT 40, Alkaline Phosphatase 54, Total Protein 7.0, Albumin 4.1, Globulin 2.9, Albumin/Globulin Ratio 1.4, CBC w Diff NO MAN DIFF REQ, RBC 4.15 L, MCV 86.9, MCH 30.4, MCHC 35.0, RDW 13.2, MPV 8.9, Gran % 56.9, Lymphocytes % 31.7, Monocytes % 8.1, Eosinophils % 2.9, Basophils % 0.4, Absolute Granulocytes 3.3, Absolute Lymphocytes 1.8, Absolute Monocytes 0.5, Absolute Eosinophils 0.2, Absolute Basophils 0, Serum Alcohol < 10.0 (Milagros MCGEE,Bhaskar Napier) Comments: 03/13/2018 8:03:08 AM patient signed out to me by Dr. Linares at shift supervisor records change. 03/13/2018 6:01:04 PM patient has been evaluated by the crisis condition and felt to be stable for outpatient management. (Clary MCGEE,Rudy Vela) Departure Departure Condition: Stable Clinical Impression Primary Impression: Schizoaffective disorder Secondary Impressions: Marijuana abuse Referrals: Patient Has No Primary Care Dr (PCP/Family) Departure Forms: Customer Survey General Discharge Information Comments pt signed out to dr. ludwig, 03/13/18, 7am, labs, crises evaluation pending. (Milagros MCGEE,Bhaskar Napier) Departure Disposition: HOME OR SELF CARE Additional Instructions: Follow-up with [facility] on March 16. Notify your primary care doctor of this emergency department visit and treatment plan. Return if any concerns or sudden worsening. (Clary MCGEE,Rudy Vela)
[2018-03-13 03:04] LABS: ABSOLUTE BASOPHIL COUNT 0 /CUMM (0.0-0.2); ABSOLUTE EOSINOPHIL COUNT 0.2 /CUMM (0.0-0.7); ABSOLUTE GRANULOCYTE CT 3.3 /CUMM (1.4-6.5); ABSOLUTE LYMPH COUNT 1.8 /CUMM (1.2-3.4); ABSOLUTE MONOCYTE COUNT 0.5 /CUMM (0.10-0.60); BASOPHIL % 0.4 % (0.0-2.0); EOSINOPHIL % 2.9 % (0-5); GRANULOCYTE % 56.9 % (42.2-75.2); HEMATOCRIT 36.1 % (42-52); MEAN CORPUSCULAR HGB 30.4 PG (27.0-31.0); MEAN CORPUSCULAR VOLUME 86.9 FL (80.0-94.0); MEAN PLATELET VOLUME 8.9 FL (7.4-10.4); PLATELET COUNT 161 /CUMM (130-400); RBC DISTRIBUTION WIDTH 13.2 % (11.5-14.5); RED BLOOD CELL CT 4.15 /CUMM (4.70-6.10); WHITE BLOOD CELL COUNT 5.8 /CUMM (4.8-10.8)
[2018-03-13 13:33] VITALS: BP 123/73
--- NOTE | 2018-03-13 15:23 | ED PSYCH CRISIS CONSULTATION ---
Crisis Consult Basic Assessment Date of Consult: 03/13/18 Responsible Person/Accompanied By: self Insurance Authorization: Insurance #1: Insurance name: [employer] Phone number: Policy number: [id number] Group number: [id number] Authorization number: ED Provider: Patient's ED Provider: Milagros MCGEE,Bhaskar Napier Primary Care Physician: Patient's PCP: Patient Has No Primary Care Dr PCP's Phone Number: Current Psychiatrist: Shelia Fish APRN Chief Complaint: Psychiatric Related Complaint Patient's Quote: "My anxiety is high" Patient's Address: [address] [place] [address] Other Phone Number: Who Do You Live With? Family Family/Informants Interviewed: left message for Cassandra corea [phone] Allergies - Coded Allergies: cashew nut (Severe, THROAT CLOSURE 01/05/17) Fish Containing Products (Intermediate, SWELLING 01/08/18) shellfish derived (THROAT CLOSES 01/28/18) Current Medications - Scheduled Medications Olanzapine 15 MG TABLET 15 MG PO AT BEDTIME Schizoaffective #30 TAB Prescribed by Antwan Aleman MD on 03/02/18 Scheduled PRN Medications Nicotine Polacrilex (Nicorelief) 4 MG GUM 1 GUM PO Q2 HRS NEEDED PRN smoking cessation #30 GUM Prescribed by Antwan Aleman MD on 03/02/18 Trazodone HCl 50 MG TABLET 50 MG PO AT BEDTIME PRN insomnia #15 TAB Prescribed by Antwan Aleman MD on 03/02/18 Laboratory Results: Laboratory Tests 03/13/18 1205: Urine Opiates Screen < 100, Methadone Screen 41, Barbiturate Screen < 60, Ur Phencyclidine Scrn < 6.00, Amphetamines Screen < 100, U Benzodiazepines Scrn < 85, Urine Cocaine Screen < 50, Urine Cannabis Screen > 80.00 H 03/13/18 0225: Anion Gap 9, Estimated GFR > 60, BUN/Creatinine Ratio 21.3, Glucose 97, Calcium 9.1, Total Bilirubin 0.3, AST 25, ALT 40, Alkaline Phosphatase 54, Total Protein 7.0, Albumin 4.1, Globulin 2.9, Albumin/Globulin Ratio 1.4, CBC w Diff NO MAN DIFF REQ, RBC 4.15 L, MCV 86.9, MCH 30.4, MCHC 35.0, RDW 13.2, MPV 8.9, Gran % 56.9, Lymphocytes % 31.7, Monocytes % 8.1, Eosinophils % 2.9, Basophils % 0.4, Absolute Granulocytes 3.3, Absolute Lymphocytes 1.8, Absolute Monocytes 0.5, Absolute Eosinophils 0.2, Absolute Basophils 0, Serum Alcohol < 10.0 Past History Past Medical History Neurological: NONE, SKULL FRACTURE A BABY EENT: NONE Cardiovascular: NONE Respiratory: NONE Gastrointestinal: NONE Hepatic: NONE Renal: NONE Musculoskeletal: NONE Psychiatric: anxiety, psychosis, schizo affective disorder, substance abuse ( Cannabus Use Disorder), Attention-deficit/hyperac tivity disorder Endocrine: NONE Blood Disorders: NONE Cancer(s): NONE 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 Past Surgical History Surgical History: non-contributory Psychosocial History Strengths/Capabilities: Mother brings him to the ED when she believes he needs help pt is likeable and cooperative Pt has been attending his appointments and is working on getting a job at [employer] Physical Limitations (Interventions): None reported Psychiatric Treatment History Psych Treatment Psychiatric Treatment Yes Inpatient Treatment Yes Outpatient Treatment Yes Location of Treatment [facility], [facility], Reason for Treatment SI, Depression, Anxiety, psychosis Dates of Treatment d/c CPS 03/02, bridge appointment [facility], [facility] intake , f/u 03/16 Response to Treatment Pt followed up with OPS bridge appt, pt followed up with [facility] appt on 03/08 and has another appt on 03/16/18. He is following is discharge plan from [facility]. Diagnosis by History: Attention-deficit/hyperactivity disorder, as a child Depression Psychosis Cannabis use Schizoaffetctive Disorder Substance Use/Abuse History Drug Use/Abuse Substances Used/Abused Yes Substance Used/Abused Marijuana First Use unk Last Used 03/12/18 How much used/taken 1 blunt How often varies Route of use smoke Substance Abuse Treatment Substance Abuse Treatment Past Substance Abuse TX Yes Departure Disposition Referrals Patient Has No Primary Care Dr (PCP/Family)
--- NOTE | 2018-03-13 16:50 | ED PSY CRISIS COLLATERAL NOTE ---
Collateral Note Collateral Note Family/Inform/Reyes Contacts: Pt was evaluated by crisis and cleared psychiatrically for discharge. Crisis Consult was started but cannot be finished. There is a [employer] issue that requires a [employer] imagery analyst. Documentation will be completed when issue is resolved.
--- NOTE | 2018-03-14 15:27 | ED PSYCH CRISIS CONSULTATION ---
Crisis Consult Basic Assessment Date of Consult: 03/13/18 Responsible Person/Accompanied By: self Insurance Authorization: Insurance #1: Insurance name: [employer] Phone number: Policy number: [id number] Group number: [id number] Authorization number: ED Provider: Patient's ED Provider: Milagros MCGEE,Bhaskar Napier Primary Care Physician: Patient's PCP: Patient Has No Primary Care Dr PCP's Phone Number: Current Psychiatrist: Shelia Fish APRN, lizett appt until [facility] appt on Chief Complaint: Psychiatric Related Complaint Patient's Quote: "My nerves" Present Illness: Pt is a 18 year old male BIBA from home. Per mom pt is having a "manic episode" and wrote all over his body. Crisis attempted to reach mother but was unsucessful in reaching mom before the pt was cleared for discharge. Pt reports since his last inpatient hospitalization, he did attend his apointment at [facility] with Shelia Fish APRN from a Bridge appointment for medications on 03/07/18. He attended his [facility] intake on 03/08/18. He is going to be enrolled in the [facility] program at [facility] and meets with his clinician Victoria on 03/16/18. Pt is aware that he has a medication appointment on 04/20/18 at [facility]. He states he has all his appointments in his phone. Pt states he is here today because his anxiety is really high. He rates it an 11 on a scale of 1-10. Pt states he smoked a blunt for the first time since his last inpatient stay on 03/12. He explained that he owed "his boy" $50 so when he gave him the money he asked him to throw in a small bag of weed. Pt states he has spent most of his days playing x-box, watching hulu or netflix. He has been living with his mother , step father and brother. He states his mother told him that he cannot return home. Pt does not seem to be upset or distraught about his information. He states that he has a friend that he can stay with but he doesn't have his phone here so we can't call the friend to verify this plan. Patient is oriented x3 (in fact specifically asked to use the phone to call [employer] because he was supposed to call a hiring pe manager there at 2:30 p.m. to see if they have any openings), denies SI/HI/AH/VH. Pt is following his CPS discharge plan and is future oriented. Moreover, pt asked this clinician's recommendation about what else the patient can apply for in terms of "cards" since he already has his "[place] card". Pt appears to now have Medicaid/ [place]. Pt is interested in applying for SSDI, SNAP, other entitlements. Crisis educated pt that [facility] would be able to help him with this as they provide case management services. Crisis consulted with Dr. Sangita Linares and patient is psychiatrically cleared for discharge. Pt to follow up with [facility] on 03/16/18. Who Do You Live With? Mother Family/Informants Interviewed: left message for mother Cassandra Livingston , Spoke to Care, bookkeeping assistant in the clinic. Confirmed pt attended intake on 03/08. Pt has follow up appt on 03/16/18 and med appt on 04/20/18. Allergies - Coded Allergies: cashew nut (Severe, THROAT CLOSURE 01/05/17) Fish Containing Products (Intermediate, SWELLING 01/08/18) shellfish derived (THROAT CLOSES 01/28/18) Current Medications - Scheduled Medications Olanzapine 15 MG TABLET 15 MG PO AT BEDTIME Schizoaffective #30 TAB Prescribed by Antwan Aleman MD on 03/02/18 Scheduled PRN Medications Nicotine Polacrilex (Nicorelief) 4 MG GUM 1 GUM PO Q2 HRS NEEDED PRN smoking cessation #30 GUM Prescribed by Antwan Aleman MD on 03/02/18 Trazodone HCl 50 MG TABLET 50 MG PO AT BEDTIME PRN insomnia #15 TAB Prescribed by Antwan Aleman MD on 03/02/18 Past History Past Medical History Neurological: NONE, SKULL FRACTURE A BABY EENT: NONE Cardiovascular: NONE Respiratory: NONE Gastrointestinal: NONE Hepatic: NONE Renal: NONE Musculoskeletal: NONE Psychiatric: psychosis, schizo affective disorder, substance abuse (Cannabus Use Disorder), Attention-deficit/hyperac tivity disorder Endocrine: NONE Blood Disorders: NONE Cancer(s): NONE 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: N/A Past Surgical History Surgical History: non-contributory Psychosocial History Strengths/Capabilities: Mother brings pt to ED when she thinks he needs help Pt is following his [facility] d/c plan: Pt attended his Bridge appt at OPS on 03/07, pt attended Care intake 03/08, pt has follow up appt 03/16/18 with [facility] clinician @ [facility], pt has med appt 04/20/18, Physical Limitations (Interventions): None reported Psychiatric Treatment History Psych Treatment Psychiatric Treatment Yes Inpatient Treatment Yes Outpatient Treatment Yes Location of Treatment [facility], [facility] Reason for Treatment off medications/psychotic Dates of Treatment most recent IP discharge was 03/02/18 Response to Treatment good, pt is following discharge plan Diagnosis by History: Attention-deficit/hyperactivity disorder, as a child Depression Psychosis Cannabis use Schizoaffetctive Disorder Substance Use/Abuse History Drug Use/Abuse Substances Used/Abused Yes Substance Used/Abused Marijuana Last Used 03/12/18 How much used/taken 1 blunt How often 1st time since discharge from [facility] on 03/02/18 Route of use inhale Substance Abuse Treatment Substance Abuse Treatment Past Substance Abuse [place] No Current Mental Status Mental Status Orientation: Person, Place, Situation Affect: Appropriate Speech: Normal Neuro-vegetative: Sleep Disturbance Appearance Appearance- Dress/Hygiene: pt presents in hospital attire. His hair is recently self-shaved. Behaviors Thought Process: Tangential Thought Content: WNL Memory: WNL Insight: WNL SI/HI Risk Assessment Past Suicidal Ideation/Attempts Yes Current Suicidal Ideation/Att No Past Homicidal Ideation/Att: No Current Homicidal Ideation/Attempts No Degree of Intent: None Risk Factors: age (under 24/over 65), high anxiety/distress, SA/MH hospitalized, substance abuse, poor impulse control, male, limited support Lethality Ratin PTSD Checklist PTSD Done? patient declined ED Management Sitter: Yes Restraints: No DSM5/PS Stressors/Medical Prob Diagnosis' (DSM 5, Stressors, Medical): F25.0 Schizoaffective Disorder, Bipolar Type F12.20 Cannabis Use Disorder, Moderate Stressors: housing, unemployment Current GAF: 42 Departure Disposition Psych Medical Clearance Date: 03/13/18 Medically Cleared at: 1450 Time Started: 1450 Time Ended: 1520 Psychiatrist Consulted: Dr. Sangita Linares Date Disposition Established: 03/14/18 Time Disposition Established: 1529 Plan for Disposition - Modality: Outpatient Facility: [facility] Follow-up Appt Date: 08/23/18 Contact: Victoria, [facility] program Rationale for Disposition: Pt presents to the ED with increased anxiety. He notes anxiety is 11 on a scale of 1-10, 10 being the highest. Pt states he smoke marijuana on 03/12 for the first time since his discharge from [facility]. Pt has been following is after care plan and denies SI/HI/AH/VH. Pt is to be discharged from ED to follow up with Care this week (03/16/18). Referrals Patient Has No Primary Care Dr (PCP/Family)
== END 2018-03-13 18:13 ==
LOC: ERH 01:42
PROVIDERS: Pediatrics
DX: F25.9 Schizoaffective disorder, unspecified (principal); F12.10 Cannabis abuse, uncomplicated
CPT/HCPCS: 80307; G0463; G0480